=== PATIENT | female | born 1975 | race African-American/Black ===

== ENCOUNTER 2016-03-27 12:27 | Emergency (ER) | payer BC, OTHER ==
[2016-03-27 12:43] VITALS: BP 127/81; PULSE 69; TEMP 98.5; BMI 29.2
[2016-03-27] MEDS ORDERED: predniSONE 20 MG TABLET (UD) ONE (14:31)
[2016-03-27] MEDS ORDERED: ALBUTEROL SO4 2.5/IPRATROPIUM 0.5 INH SOL 3 ML VIAL.NEB. NEB ONE (14:31)
[2016-03-27] MEDS ORDERED: IBUPROFEN 400 MG TABLET (FP) PO ONE ×2 (14:31)
[2016-03-27] MEDS ORDERED: predniSONE 20 MG TABLET (UD) PO ONE (14:31)
--- NOTE | 2016-03-27 14:46 | PDOC ---
History of Present Illness - General Chief Complaint: Respiratory Stated Complaint: PCP SENT, COUGH, HEADACHES Time Seen by Provider: 03/27/16 14:28 History Source: Patient Exam Limitations: No Limitations - History of Present Illness Initial Comments: 03/27/16 15:21 Patient was sent per instruction of ward secretary Dr. Sharpe office for evaluation of continued/persistent cough 2 and half weeks. Patient states has tried multiple home remedies, multiple vyjd-mhs-rvejbgv medications with minimal result. States head is now hurting every time she coughs. Denies fever, denies phlegm production, but states has had no remedy Timing/Duration: reports: constant, getting worse Severity: reports: moderate, severe Past History - Travel Traveled outside of the country in the last 30 days: No Close contact w/someone who was outside of country & ill: No - Past Medical History Allergies/Adverse Reactions: Allergies Allergy/AdvReac Type Severity Reaction Status Date / Time No Known Drug Allergies Allergy Verified 03/27/16 12:40 Home Medications: Ambulatory Orders Multivitamin [Multivitamins] 1 each PO DAILY 02/14/12 Acetaminophen W/ Codeine #3 [Tylenol # 3 -] 2 tab PO Q6H PRN #30 tablet Albuterol 0.083% Nebulizer Rose [Ventolin 0.083% Nebulizer Soln -] 1 neb NEB Q4H PRN #30 vial 03/27/16 Azithromycin [Zithromax -] 250 mg PO UTDICT #6 tab 03/27/16 Prednisone [Deltasone -] 20 mg PO BID #8 tablet 03/27/16 Promethazine HCl/Codeine [Prometh-Codein 6.25-10 mg/5 ml] 5 ml PO Q8H PRN #50 syrup MDD 20 03/27/16 Anemia: Yes Asthma: No Cancer: No Cardiac Disorders: No CVA: No COPD: No CHF: No Dementia: No Diabetes: No GI Disorders: No Disorders: No HTN: No Hypercholesterolemia: No Liver Disease: Yes (cyst) Seizures: No Thyroid Disease: No - Surgical History Abdominal Surgery: No Appendectomy: No Cardiac Surgery: No Cholecystectomy: No Lung Surgery: No Neurologic Surgery: No Orthopedic Surgery: Yes (R EXTENSOR TENDON REPAIR) - Psycho/Social/Smoking Cessation Hx Suicidal Ideation: No Smoking History: Never smoked Have you smoked in the past 12 months: No Hx Alcohol Use: Yes (SOCIAL) Drug/Substance Use Hx: No Substance Use Type: None Hx Substance Use Treatment: No Review of Systems - Review of Systems Able to Perform ROS?: Yes Is the patient limited Bermudian proficient: Yes Constitutional: Yes: Symptoms Reported, Malaise Respiratory: Yes: Symptoms reported, See HPI, Cough, Shortness of Breath, Wheezing. No: Productive cough ABD/GI: No: Symptoms Reported Integumentary: Yes: Symptoms Reported Neurological: Yes: Symptoms reported, See HPI, Headache All Other Systems: Reviewed and Negative *Physical Exam - Vital Signs Last Vital Signs Temp Pulse Resp BP Pulse Ox 98.5 F 69 19 127/81 99 03/27/16 12:40 03/27/16 12:40 03/27/16 12:40 03/27/16 12:40 03/27/16 12:40 - Physical Exam General Appearance: Yes: Nourished, Appropriately Dressed, Apparent Distress, Moderate Distress HEENT: positive: SEBASTIAN, Normal ENT Inspection, TMs Normal, Pharynx Normal, Rhinorrhea, Sinus Tenderness Neck: positive: Tender, Supple, Lymphadenopathy (R), Lymphadenopathy (L) Respiratory/Chest: positive: Lungs Clear, Wheezing. negative: Normal Breath Sounds (diminished and coarse inspiratory and expiratory breath sounds, no wheezing noted but difficult to assess secondary to hyperactive cough), Rhonchi Cardiovascular: positive: Regular Rate Gastrointestinal/Abdominal: positive: Normal Bowel Sounds, Soft. negative: Tender Musculoskeletal: positive: Normal Inspection Extremity: positive: Normal Capillary Refill, Normal Inspection Integumentary: positive: Normal Color, Dry, Warm, Pale Neurologic: positive: laboratory engineer II-XII NML intact, Fully Oriented, Alert, Normal Mood/ Affect, Normal Response, Motor Strength 5/5 Progress Note - Progress Note Progress Note: Chest x-ray negative for infiltrate, patient much improved after one DuoNeb, and 60 mg of prednisone. Also given 60 mg of ibuprofen with some resolve of generalized and headache. Will continue albuterol nebulizers and prednisone at home for hyperactive airway, will start Zithromax to treat possible bacterial bronchitis, and prescribed 50 mL of promethazine with codeine for severe cough. Will follow-up with PMD this week *DC/Admit/Observation/Transfer Diagnosis at time of Disposition: Bronchitis - Discharge Dispostion Disposition: HOME Condition at time of disposition: Stable Admit: No - Prescriptions Prescriptions: Prednisone [Deltasone -] 20 mg PO BID #8 tablet Promethazine HCl/Codeine [Prometh-Codein 6.25-10 mg/5 ml] 5 ml PO Q8H PRN #50 syrup MDD 20 PRN Reason: Cough Albuterol 0.083% Nebulizer Rose [Ventolin 0.083% Nebulizer Soln -] 1 neb NEB Q4H PRN #30 vial PRN Reason: Cough Azithromycin [Zithromax -] 250 mg PO UTDICT #6 tab - Referrals Referrals: Cuong Canela MD [Primary Care Provider] - - Patient Instructions Printed Discharge Instructions: DI for Acute Bronchitis Additional Instructions: Rest, drink lots of fluids: Teas, water, soups, Pedialyte Saltwater gargles Steamy showers/seem to face break up mucus Avoid contact with others until fevers and cough resolved Lots of handwashing and good hygiene Continue fhbd-[id number]-[id number] medications for symptomatic relief Tylenol or Motrin for fever and pain Continue albuterol nebulizers every 4-6 hours for the next 2 days then as needed for continued wheezing and cough Continue prednisone 40 mg for the next 4 days as directed Start Zithromax as directed and complete course May use promethazine with codeine for severe coughing understanding will make dizzy and sleepy Followup with private physician in one to 2 days Return to emergency department for worsened symptoms, fevers, dehydration - Post Discharge Activity Work/School Note: Back to Work
== END 2016-03-27 15:33 | disposition home or self-care (01) ==
LOC: JERFT 12:27
PROC: 3E0F7GC Introduction of Other Therapeutic Substance into Respiratory Tract, Via Natural or Artificial Opening (ICD-10-PCS; principal; 2016-03-27)
DX: J40 Bronchitis, not specified as acute or chronic (principal)
CPT/HCPCS: 71020-TC; 99281-25

== ENCOUNTER 2016-05-03 05:25 | Day surgery (SDC) | payer BC, OTHER ==
[2016-04-30 17:15] VITALS: BMI 30.7
[2016-05-03] MEDS ORDERED: SODIUM CHLORIDE 0.9% P/F 10 ML VIAL IJ ONE (07:21)
[2016-05-03] MEDS ORDERED: DEXAMETHASONE SOD PHOSPHATE 4 MG/1 ML VIAL ONE (07:21)
[2016-05-03] MEDS ORDERED: KETOROLAC TROMETHAMINE 30 MG/1 ML VIAL ONE (07:21)
[2016-05-03] MEDS ORDERED: ceFAZolin SODIUM 1 GM VIAL ONE (07:21)
[2016-05-03] MEDS ORDERED: MIDAZOLAM HCL 2 MG/2 ML SINGLE DOSE VIAL ONE (07:21)
[2016-05-03] MEDS ORDERED: SUCCINYLCHOLINE CHLORIDE 200 MG/10 ML VIAL ONE ×2 (07:21→07:29)
[2016-05-03] MEDS ORDERED: LIDOCAINE HCL 2% (20ML MULTI-DOSE VIAL) NR ONE (07:28)
[2016-05-03] MEDS ORDERED: DESFLURANE GAS 240 ML BOTTLE IH ONE (07:28)
[2016-05-03] MEDS ORDERED: ceFAZolin SODIUM 1 GM VIAL IVPB ONE (08:28)
[2016-05-03] MEDS ORDERED: ACETAMINOPHEN 325 MG TABLET (FP) PO PRN ×2 (09:28→09:54)
[2016-05-03] MEDS ORDERED: oxyCODONE HCL 5 MG TABLET PO PRN (09:28)
[2016-05-03] MEDS ORDERED: ONDANSETRON 4 MG/2 ML VIAL IVPUSH PRN (09:28)
[2016-05-03] MEDS ORDERED: LACTATED RINGERS SOLUTION 1,000 ML IV SCH (09:30)
[2016-05-03] MEDS ORDERED: IBUPROFEN 400 MG TABLET (FP) PO PRN (09:54)
--- NOTE | 2016-05-03 09:56 | HP ---
History & Physical Update - History History: No Change - Physical Physical: No Change - Assessment Assessment: No Change - Plan Plan: No Change
--- NOTE | 2016-05-03 09:57 | OP ---
[id number] polyp. menorrhagia Operation: Hysteroscopic Myomectomy. Suction DC Findings: Endometrial polyp seen Post-Operative Diagnosis: Same as Pre-op Surgeon: Alisia Guerrero Anesthesia: General Estimated Blood Loss (mls): 10 Operative Report Dictated: Yes
[2016-05-03 11:47] VITALS: TEMP 97.6
[2016-05-03 14:09] VITALS: BP 115/67; PULSE 87
--- NOTE | 2016-05-04 11:21 | PATH ---
Surgical Pathology Report Patient Name: ARASELI LOO [facility]. Rec. #: [id number] /Age/Gender: 1975 (Age: 40) / F Account: [id number] Location: [facility] SURG[facility] Taken: 05/03/2016 Received: 05/03/2016 Reported: 05/04/2016 Physicians: Alisia Guerrero M.D. Specimen(s) Received A: POLYPS B: ENDOMETRIAL CURETTINGS Clinical History Endometrial polyp/abnormal bleeding, myomas Final Diagnosis A. ENDOMETRIUM, CURETTING AND MYOMECTOMY: SECRETORY ENDOMETRIUM WITH AREAS SUGGESTIVE OF BENIGN ENDOMETRIAL POLYP, AND PORTION OF MYOMETRIAL TISSUE. CLOTTED BLOOD IS PRESENT. B. ENDOMETRIUM, CURETTING: SECRETORY ENDOMETRIUM, AND MYOMETRIAL TISSUE WITH ENTRAPPED ENDOMETRIUM CONSISTENT WITH ADENOMYOSIS. Electronically Signed James Hartman M.D. Gross Description A. Received in formalin labelled "polyps" is a 1.0 x 0.5 x 0.3 cm aggregate of clotted blood and griffin tissue fragments. Totally submitted in one cassette. B. Received in formalin labelled "endometrial curetting" is a 1.5 x 1.5 x 0.3 cm aggregate of griffin tissue fragments. Totally submitted in one cassette. [facility]/05/03/2016 [facility]/05/03/2016
--- NOTE | 2016-05-18 08:39 | OP ---
DATE OF OPERATION: 05/03/2016 PREOPERATIVE DIAGNOSIS: Endometrial polyps, abnormal bleeding, and leiomyomatous uterus. OPERATION: Hysteroscopic myomectomy and suction dilatation and curettage. POSTOPERATIVE DIAGNOSIS: Endometrial polyps, abnormal bleeding, and leiomyomatous uterus. SURGEON: Alisia Guerrero MD ANESTHESIA: General. PROCEDURE: Patient was taken to the operating room, placed in dorsal lithotomy position, prepped and draped in the usual sterile fashion. A time-out was performed in accordance with hospital regulations. A speculum was placed in the vagina, anterior lip of the cervix was grasped with a single-tooth tenaculum. Cervix was then dilated to accommodate the operative hysteroscope. Hysteroscopic myomectomy was performed. Contents were submitted, endometrial polyps seen. Endometrial cavity was then free of polyp, and suction dilatation and curettage was then done. After suction dilatation and curettage was done, hysteroscopy revealed normal endometrial cavity. All instruments were then removed. Patient tolerated the procedure well. Estimated blood loss was 10 mL. ALISIA GUERRERO M.D. GINA/[id number]
== END 2016-05-03 14:09 | disposition home or self-care (01) ==
LOC: JASU-SURG 05:25
PROVIDERS: ATTEND Obstetrics & Gynecology
PROC: 0UDB8ZX Extraction of Endometrium, Via Natural or Artificial Opening Endoscopic, Diagnostic (ICD-10-PCS; principal; 2016-05-03 07:30)
PROC: 0UB98ZZ Excision of Uterus, Via Natural or Artificial Opening Endoscopic (ICD-10-PCS; 2016-05-03 07:30)
DX: N84.0 Polyp of corpus uteri (principal); D25.9 Leiomyoma of uterus, unspecified; N93.9 Abnormal uterine and vaginal bleeding, unspecified
CPT/HCPCS: 88305-TC; 94760

== ENCOUNTER → 2016-07-08 | Emergency (ER) | payer BC, OTHER ==
[~2016-07-08] MED LIST: ACETAMINOPHEN 1000 MG/100 ML VIAL (NON FORMULARY) IVPB ONE; KETOROLAC TROMETHAMINE 30 MG/1 ML VIAL IVPUSH ONE; KETOROLAC TROMETHAMINE 30 MG/1 ML VIAL ONE
[2016-07-08 19:06] VITALS: BMI 31.1
[2016-07-08 21:12] LABS: BASOPHIL 0.7 % (0-2.0); EOSINOPHIL 1.3 % (0-4.5); MCH 29.2 pg (25.7-33.7); MCHC 33.3 g/dl (32.0-36.0); MEAN CELL VOLUME 87.8 fl (80-96); MEAN PLT VOLUME 9.4 fl (7.5-11.1); NEUTROPHILS 44.3 % (42.8-82.8); PLATELET COUNT 232 K/MM3 (134-434); RDW 13.5 % (11.6-15.6); WHITE BLOOD COUNT 8.5 K/mm3 (4.0-10.0)
[2016-07-08 21:30] LABS: URINE APPEARANCE SLCLOUDY; URINE BILIRUBIN NEGATIVE (NEGATIVE); URINE COLOR GREEN; URINE GLUCOSE (UA) NEGATIVE (NEGATIVE); URINE KETONE NEGATIVE (NEGATIVE); URINE LEUK ESTERASE NEGATIVE (NEGATIVE); URINE NITRITE NEGATIVE (NEGATIVE); URINE PROTEIN NEGATIVE (NEGATIVE); URINE UROBILINOGEN NEGATIVE E.U./dl (0.2-1.0)
[2016-07-08 21:31] LABS: URINE BLOOD 1+ (NEGATIVE)
[2016-07-08 21:37] LABS: ALBUMIN 3.7 g/dl (3.4-5.0); ANION GAP 10 (8-16); CO2 25 mmol/L (21-32); CREATININE 0.9 mg/dL (0.55-1.02); GLUCOSE,RANDOM 92 mg/dL (74-106); SGOT/AST 21 U/L (15-37); SGPT/ALT 23 U/L (12-78)
[2016-07-08 21:39] LABS: ALK PHOS 76 U/L (45-117); BILIRUBIN,TOTAL 0.3 mg/dL (0.2-1.0); TOT PROT 6.8 g/dl (6.4-8.2)
[2016-07-08 21:49] LABS: URINE RBC 1 /hpf (0-3)
--- NOTE | 2016-07-08 23:09 | PDOC ---
History of Present Illness - General Chief Complaint: Pain Stated Complaint: PELVIC PAIN Time Seen by Provider: 07/08/16 19:32 History Source: Patient Exam Limitations: No Limitations - History of Present Illness Initial Comments: 07/08/16 22:49 Patient is a 40 year old female with h/o C/S, abdominoplasty, b/l elbow tendon repair, c/o Left sided pelvic pain since today. States that she chronic pelvic pain x 1 year for which her OBS/LINE SERVICER has been treating her for. States the pain is intermittent but since 10AM the pain has been constant, 8.5/10, crampy pain. She took Motrin at 4:30pm without any relief of pain. She has has a D&C for this pain in the past and a polypectomy without relief. Three weeks ago the LINE SERVICER thought this pain may be related to her control implanted in the fallopian tube. Denies fever, chills, vaginal bleeding, nausea , vomiting, dysuria. PMD: dr. Tam LINE SERVICER: Dr. Blackmon PMD: as above PSOCHx: neg etoh, drug, cig Pfamhx: noncontributory to this visit ALL: NKDA GENERAL/CONSTITUTIONAL: [No fever or chills. No weakness. No weight change.] HEAD, EYES, EARS, NOSE AND THROAT: [No change in vision. No ear pain or discharge. No sore throat.] CARDIOVASCULAR: [No chest pain or shortness of breath.] RESPIRATORY: [No cough, wheezing, or hemoptysis.] GASTROINTESTINAL: [No nausea, vomiting, diarrhea or constipation. No rectal bleeding.] GENITOURINARY: [No dysuria, frequency, or change in urination, (+) chronic pelvic pain] MUSCULOSKELETAL: [No joint or muscle swelling or pain. No neck or back pain.] SKIN AND BREASTS: [No rash or easy bruising.] NEUROLOGIC: [No headache, vertigo, loss of consciousness, or loss of sensation.] PSYCHIATRIC: [No depression or anxiety.] ENDOCRINE: [No increased thirst. No abnormal weight change.] HEMATOLOGIC/LYMPHATIC: [No anemia, easy bleeding, or history of blood clots.] ALLERGIC/IMMUNOLOGIC: [No hives or skin allergy. No latex allergy.] GENERAL: [The patient is awake, alert, and fully oriented, in mild painful distress.] HEAD: [Normal with no signs of trauma.] EYES: [Pupils equal, round and reactive to light, extraocular movements intact, sclera anicteric, conjunctiva clear.] ENT: [Ears normal, nares patent, oropharynx clear without exudates. Moist mucous membranes.] NECK: [Normal range of motion, supple without lymphadenopathy, JVD, or masses.] LUNGS: [Breath sounds equal, clear to auscultation bilaterally. No wheezes, and no crackles.] HEART: [Regular rate and rhythm, normal S1 and S2 without murmur, rub.] ABDOMEN: [Soft, nontender, normoactive bowel sounds. No guarding, no rebound. No masses.] PELVIC: normal external genitalia, small amount of creamy discharge, left adnexal tenderness, mild CMT EXTREMITIES: [Normal range of motion, no edema. No clubbing or cyanosis. No cords, erythema, or tenderness.] NEUROLOGICAL: [Cranial nerves II through XII grossly intact. Normal speech, normal gait.] PSYCH: [Normal mood, normal affect.] SKIN: [Warm, Dry, normal turgor, no rashes or lesions noted.] Past History - Past Medical History Allergies/Adverse Reactions: Allergies Allergy/AdvReac Type Severity Reaction Status Date / Time No Known Drug Allergies Allergy Verified 07/08/16 19:06 Home Medications: Ambulatory Orders Multivitamins [Tab-A-Vit -] 1 tab PO DAILY 04/30/16 Ibuprofen [Motrin -] 600 mg PO QID PRN #28 tablet 05/03/16 L.acidoph,Paracasei, B.lactis [Probiotic] 1 each PO DAILY 05/03/16 Anemia: Yes Asthma: No Cancer: No Cardiac Disorders: No CVA: No COPD: No CHF: No Dementia: No Diabetes: No GI Disorders: No Disorders: No HTN: No Hypercholesterolemia: No Liver Disease: Yes (cyst) Seizures: No Thyroid Disease: No - Surgical History Abdominal Surgery: No Appendectomy: No Cardiac Surgery: No Cholecystectomy: No Lung Surgery: No Neurologic Surgery: No Orthopedic Surgery: Yes (R & L EXTENSOR TENDON REPAIR) - Psycho/Social/Smoking Cessation Hx Anxiety: No Suicidal Ideation: No Smoking History: Never smoked Have you smoked in the past 12 months: No Hx Alcohol Use: No Drug/Substance Use Hx: No Substance Use Type: None Hx Substance Use Treatment: No *Physical Exam - Vital Signs Last Vital Signs Temp Pulse Resp BP Pulse Ox 98.6 F 56 L 20 137/97 99 07/08/16 19:03 07/08/16 19:03 07/08/16 19:03 07/08/16 19:03 07/08/16 19:03 ED Treatment Course - LABORATORY CBC & Chemistry Diagram: 07/08/16 21:04 07/08/16 21:04 - ADDITIONAL ORDERS Additional order review: Laboratory Results 07/08/16 07/08/16 07/08/16 21:23 21:04 21:04 Sodium 139 Potassium 4.1 Chloride 104 Carbon Dioxide 25 Anion Gap 10 BUN 11 Creatinine 0.9 D Creat Clearance w eGFR > 60 Random Glucose 92 D Calcium 9.0 Total Bilirubin 0.3 D AST 21 D ALT 23 Alkaline Phosphatase 76 Total Protein 6.8 Albumin 3.7 Lipase 143 Urine Color Green Urine Appearance Slcloudy Urine pH 6.0 Urine Protein Negative Urine Glucose (UA) Negative Urine Ketones Negative Urine Blood 1+ H Urine Nitrite Negative Urine Bilirubin Negative Urine Urobilinogen Negative Ur Leukocyte Esterase Negative Urine RBC 1 Urine WBC None Ur Epithelial Cells Rare Urine HCG, Qual Negative 07/08/16 21:04 RBC 4.36 MCV 87.8 MCHC 33.3 RDW 13.5 MPV 9.4 Neutrophils % 44.3 Lymphocytes % 45.6 H Monocytes % 8.1 Eosinophils % 1.3 Basophils % 0.7 - RADIOLOGY Radiology Studies Ordered: Category Date Time Status PELVIC / BLADDER US [US] Stat Ultrasound 07/08/16 20:54 Taken TRANSVAGINAL ULTRASOUND US [US] Stat Ultrasound 07/08/16 20:54 Taken - Medications Given in the ED: ED Medications Discontinued Medications Generic Name Dose Route Start Last Admin Trade Name Freq PRN Reason Stop Dose Admin Acetaminophen 1,000 mg 07/08/16 20:54 07/08/16 21:17 Ofirmev Injection - IVPB 07/08/16 20:55 1,000 mg ONCE ONE Administration Medical Decision Making - Medical Decision Making 07/08/16 23:09 Patient is a 40-year-old female with history of , abdominoplasty, complaining of left pelvic pain since this morning. Patient does have a history of chronic pelvic pain for which she has been working with her WAREHOUSE ATTENDANT to resolve. Will rule out torsion with ultrasound. If ultrasound negative will send for CT abdomen and pelvis with IV contrast. Laboratory Tests 07/08/16 07/08/16 21:04 21:04 WBC 8.5 Hgb 12.7 Hct 38.3 Plt Count 232 Sodium 139 Potassium 4.1 Chloride 104 Carbon Dioxide 25 Anion Gap 10 BUN 11 Creatinine 0.9 D normal UA, preg test neg. Negative 07/08/16 23:15 Patient Name: Leona De La Torre THIS IS A PRELIMINARY REPORT FROM IMAGING RECEIVABLE CLERK IMAGES: 41 EXAM DATE AND TIME: 2016-07-08 21:35:55.0 EXAM: ULTRASOUND PELVIS, COMPLETE AND TRANSVAGINAL ULTRASOUND AND DUPLEX SCAN PELVIS, COMPLETE No ovarian torsion. Color flow with appropriate arterial and venous waveforms on the left and arterial waveforms on the right. No free fluid. Heterogeneous uterus containing scattered calcifications. Endometrial stripe complex 3 mm thick. Unremarkable visualized portion of bladder. THIS DOCUMENT HAS BEEN ELECTRONICALLY SIGNED Lakesha Jo M.D. 07/08/2016 22:54 FRANCIS Mckeon Please call Imaging Reception Clerk [phone]) with questions. Right 07/09/16 01:36 Patient Name: Leona De La Torre THIS IS A PRELIMINARY REPORT FROM IMAGING RECEIVABLE CLERK IMAGES: 493 EXAM DATE AND TIME: 2016-07-09 00:22:40.0 EXAM: CT ABDOMEN AND PELVIS WITH CONTRAST No bowel obstruction, colitis, diverticulosis, free fluid or free air. Normal diametera appendix containing an incidental 3 mm appendicolith. Unremarkable pancreas, kidneys and gallbladder. Multiple hepatic cysts, largest 4.2 cm, slightly enlarged since 04/22/14. Bilateral tubal ligation devices. Ventral hernia repair. Trace right pleural fluid. THIS DOCUMENT HAS BEEN ELECTRONICALLY SIGNED Lakesha Jo M.D. 07/09/2016 01:08 FRANCIS Mckeon Please call Imaging Reception Clerk [phone]) with questions. I discussed the physical exam findings, ancillary test results and final diagnoses with the patient. I answered all of the patient's questions. The patient was satisfied with the care received and felt comfortable with the discharge plan and treatment plan. The Patient agrees to follow up with the primary care physician within 24-72 hours. *DC/Admit/Observation/Transfer Diagnosis at time of Disposition: Abdominal pain, left lower quadrant - Discharge Dispostion Disposition: HOME Condition at time of disposition: Stable - Referrals Referrals: Cuong Canela MD [Primary Care Provider] - - Patient Instructions Printed Discharge Instructions: DI for Abdominal Pain-Adult Additional Instructions: Your Discharge Instructions: You must call primary care physician within 24 hours to arrange follow-up. Return to the Emergency Department with any new, persistent or worsening symptoms, for fever, chills, SOB, dizziness or any other concerning changes that may occur.
[2016-07-09 02:03] VITALS: BP 115/73; PULSE 68; TEMP 98.5
== END | disposition home or self-care (01) ==
LOC: JER 18:41
PROC: 3E033NZ Introduction of Analgesics, Hypnotics, Sedatives into Peripheral Vein, Percutaneous Approach (ICD-10-PCS; principal; 2016-07-08)
PROC: 3E0333Z Introduction of Anti-inflammatory into Peripheral Vein, Percutaneous Approach (ICD-10-PCS; 2016-07-08)
DX: R10.32 Left lower quadrant pain (principal)
CPT/HCPCS: 36415; 74177-TC; 76830-TC; 76856-TC; 80053; 81003; 81015; 83690; 84703; 85025; 99283-25

== ENCOUNTER 2016-08-16 08:33 | Day surgery (SDC) | payer BC, OTHER ==
[2016-08-13 16:08] VITALS: BMI 31.2
[~2016-08-16 08:33] MED LIST changes: -ACETAMINOPHEN 1000 MG/100 ML VIAL (NON FORMULARY) IVPB ONE; +BUPIVACAINE HCL/PF 0.5% (5MG/ML) 10 ML VIAL IJ ONE; -KETOROLAC TROMETHAMINE 30 MG/1 ML VIAL IVPUSH ONE; -KETOROLAC TROMETHAMINE 30 MG/1 ML VIAL ONE
[2016-08-16] MEDS ORDERED: BUPIVACAINE HCL/PF 0.5% (5MG/ML) 10 ML VIAL ONE (08:56)
[2016-08-16] MEDS ORDERED: PROPOFOL 20 ML ONE ×3 (09:10→09:23)
[2016-08-16] MEDS ORDERED: MIDAZOLAM HCL 2 MG/2 ML SINGLE DOSE VIAL ONE (09:11)
[2016-08-16] MEDS ORDERED: ROCURONIUM BROMIDE 50 MG/5 ML VIAL ONE (09:11)
[2016-08-16] MEDS ORDERED: DEXAMETHASONE SOD PHOSPHATE 4 MG/1 ML VIAL ONE (09:37)
--- NOTE | 2016-08-16 09:38 | HP ---
History & Physical Update - History History: No Change - Physical Physical: No Change - Assessment Assessment: No Change - Plan Plan: No Change
[2016-08-16] MEDS ORDERED: DESFLURANE GAS 240 ML BOTTLE IH ONE (09:43)
[2016-08-16] MEDS ORDERED: ceFAZolin SODIUM 1 GM VIAL ONE (09:52)
[2016-08-16] MEDS ORDERED: ceFAZolin SODIUM 1 GM VIAL IVPB ONE (09:52)
[2016-08-16] MEDS ORDERED: oxyCODONE HCL 5 MG TABLET PO PRN (10:04)
[2016-08-16] MEDS ORDERED: ONDANSETRON 4 MG/2 ML VIAL IVPUSH PRN (10:04)
[2016-08-16] MEDS ORDERED: IBUPROFEN 800 MG/8 ML IJ IVPB PRN (10:04)
[2016-08-16] MEDS ORDERED: PROMETHAZINE HCL 25 MG/1 ML VIAL IVPUSH PRN (10:04)
[2016-08-16] MEDS ORDERED: ACETAMINOPHEN 1000 MG/100 ML VIAL (NON FORMULARY) IVPB PRN (10:06)
[2016-08-16] MEDS ORDERED: LACTATED RINGERS SOLUTION 1,000 ML IV SCH (10:15)
[2016-08-16] MEDS ORDERED: GLYCOPYRROLATE 0.2 MG/1 ML VIAL ONE (10:31)
[2016-08-16] MEDS ORDERED: NEOSTIGMINE METHYLSULFATE 0.5 MG/ML - 10 ML MDV ONE (10:31)
--- NOTE | 2016-08-16 12:02 | OP ---
Operative Note - Note: Operative Date: 08/16/16 Pre-Operative Diagnosis: Chronic pelvic pain. Salpingitis. ovarian cyst Operation: Laparoscopic removal of bilateral essure. Bilateral salpingectomy. right ovarian cystectomy Findings: 3 cm right cyst Surgeon: Alisia Guerrero Senior Strategy Analyst: Clare Almodovar Anesthesia: General Estimated Blood Loss (mls): 30 Operative Report Dictated: Yes
--- NOTE | 2016-08-16 13:22 | OP ---
DATE OF OPERATION: 08/16/2016 PREOPERATIVE DIAGNOSIS: Chronic pelvic pain and chronic salpingitis and ovarian cyst. POSTOPERATIVE DIAGNOSIS: Chronic pelvic pain and chronic salpingitis and ovarian cyst. OPERATION: Robotic laparoscopic bilateral salpingectomy and bilateral removal of Essure device, foreign body, and right ovarian cystectomy. SURGEON: Janeth Guerrero MD CERTIFIED EXECUTIVE CHEF: Clare Almodovar DO ANESTHESIA: General. PROCEDURE: The patient was taken to the operating room and placed in the dorsal lithotomy position, prepped and draped in the usual sterile fashion. A timeout was performed in accordance with hospital regulations. A Oquendo catheter was inserted into the bladder. Attention was then drawn to the umbilicus where an 5-mm upper abdomen incision was made. Veress needle was inserted into the cavity. A 5-mm trocar was then inserted. Visualization revealed the patient's umbilical mesh. An incision was made above the mesh two fingerbreadths above the umbilicus and the 8-mm incision was then made and the trocar was inserted under direct visualization. Two other trocars were made on the left and right side under direct visualization. The Enigmatec Luis Robot was then side docked to the patient's bedside and trocar was then inserted. Instruments were then inserted. Maryland was inserted on the right and Endoshears was inserted on the left. After sufficient placement had been made, attention was then drawn to the console where control of the console was done. Endoshears was then used to make an incision in the isthmic area of the fallopian tube. The Essure device was noted on the right side and a large amount of wire was then removed from the endometrial cavity and the rest of the isthmic area of the tube. Cauterization of the tube was done in cutting and fallopian tube was removed and Essure device removal was then done. Same procedure was repeated on the other side where the incision on the fallopian tube was made and Essure device was located and Da Luis was then used to remove the wire from the endometrial cavity as well as the isthmic area. Fallopian tube was grasped and coagulated and cut and both fallopian tubes and wires were then removed. Attention was then drawn to the right ovary where a 3-cm ovarian cyst was noted. An ovarian cystectomy was then performed using the Maryland and the Endoshears and coagulation and cutting and removal of the tube was done. Hemostasis was achieved. All tubes and all had been removed. Trocars were undocked from the patient's bedside. All instruments were then removed. CO2 was removed from the abdomen. The incisions were then closed using 4-0 Biosyn suture in a subcuticular fashion. Wounds were washed and dressed. The patient tolerated the procedure well. Estimated blood loss 20 mL. JANETH GUERRERO M.D. [id number]
[2016-08-16] MEDS ORDERED: oxyCODONE HCL 5 MG TABLET ONE (13:39)
[2016-08-16 17:49] VITALS: BP 116/72; PULSE 86; TEMP 98
--- NOTE | 2016-08-17 13:35 | PATH ---
Surgical Pathology Report Patient Name: ARASELI LOO [facility]. Rec. #: [id number] /Age/Gender: 1975 (Age: 40) / F Account: [id number] Location: [facility] SURGICAL Taken: 08/16/2016 Received: 08/16/2016 Reported: 08/17/2016 Physicians: Alisia Guerrero M.D. Specimen(s) Received A: RIGHT ESSURE B: RIGHT FALLOPIAN TUBE C: LEFT ESSURE D: LEFT FALLOPIAN TUBE E: RIGHT OVARIAN CYST Clinical History Chronic pelvic pain Final Diagnosis A. SLIDE ATTENDANT, RIGHT FALLOPIAN TUBE, REMOVAL: COILED METALLIC WIRE CONSISTENT WITH ESSURE. (GROSS ONLY). B. RIGHT FALLOPIAN TUBE, SALPINGECTOMY: FULL LUMINAL SEGMENT OF FALLOPIAN TUBE INCLUDING FIMBRIATED END, WITH BENIGN SEROUS PARATUBAL CYSTS. C. SLIDE ATTENDANT, LEFT FALLOPIAN TUBE, REMOVAL: COILED METALLIC WIRE CONSISTENT WITH ESSURE. (GROSS ONLY). D. LEFT FALLOPIAN TUBE, SALPINGECTOMY: FULL LUMINAL SEGMENT OF FALLOPIAN TUBE INCLUDING FIMBRIATED END. E. RIGHT OVARIAN CYST, EXCISION: HEMORRHAGIC LUTEAL CYST. Electronically Signed James Hartman M.D. Gross Description A. Received fresh labeled "right essure," are 2 lind metallic portions of coiled, springlike wire measuring 0.5 and 2.0 cm in length. No soft tissue is present. No sections are submitted, gross only. B. Received in formalin labeled "right fallopian tube," is a 6 cm in length fimbriated fallopian tube. The outer surface is lind purple and smooth. Sectioning reveals an unremarkable lumen. Regulatory Affairs Internship sections are submitted in one cassette. C. Received fresh labeled "left essure," are 2 coiled portions of springlike wire measuring 0.6 and 17.0 cm in length. No soft tissue is present. No sections are submitted, gross only. D. Received in formalin labeled "left fallopian tube," are 2 portions of fallopian tube measuring 4.5 and 3.0 cm in length. The shorter portion displays attached fimbria. The outer surfaces are griffin-pink and smooth. Sectioning reveals an unremarkable lumen. Regulatory Affairs Internship sections are submitted in 2 cassettes as follows: 1-fimbria; 2-cross sections of fallopian tube. E. Received in formalin labeled "right ovarian cyst," is a 1.6 x 1.3 x 0.3 cm aggregate of griffin-brown soft tissue fragments, possibly consistent with portions of a disrupted cyst. The specimen is entirely submitted in one cassette. 08/16/201608/16/2016
== END 2016-08-16 15:30 | disposition home or self-care (01) ==
LOC: JASU-SURG 08:33
PROVIDERS: ATTEND Obstetrics & Gynecology
PROC: 0UB74ZZ Excision of Bilateral Fallopian Tubes, Percutaneous Endoscopic Approach (ICD-10-PCS; principal; 2016-08-16 09:00)
PROC: 0UB04ZZ Excision of Right Ovary, Percutaneous Endoscopic Approach (ICD-10-PCS; 2016-08-16 09:00)
DX: N70.91 Salpingitis, unspecified (principal); N83.201 Unspecified ovarian cyst, right side; G89.29 Other chronic pain
CPT/HCPCS: 88300-TC; 88302-TC; 88305-TC; 94760

== ENCOUNTER 2017-07-18 05:05 | Day surgery (SDC) | payer BC, OTHER ==
[2017-07-10 13:27] VITALS: BMI 24.7
--- NOTE | 2017-07-18 05:56 | HP ---
History & Physical Update - History History: No Change - Physical Physical: No Change - Assessment Assessment: No Change - Plan Plan: No Change (no change in HP from 07/10/17)
[2017-07-18] MEDS ORDERED: BUPIVACAINE HCL/PF 0.5% (5MG/ML) 10 ML VIAL ONE (07:26)
[2017-07-18] MEDS ORDERED: ROPIVACAINE HCL 0.5% 30ML VIAL ONE (07:30)
[2017-07-18] MEDS ORDERED: MIDAZOLAM HCL 2 MG/2 ML SINGLE DOSE VIAL ONE ×2 (07:32)
[2017-07-18] MEDS ORDERED: SCOPOLAMINE HYDROBROMIDE 1 PATCH PATCH.TD72 ONE (07:40)
[2017-07-18] MEDS ORDERED: ceFAZolin SODIUM 1 GM VIAL ONE ×3 (07:42→16:41)
[2017-07-18] MEDS ORDERED: PHENAZOPYRIDINE HCL 100 MG TABLET (FP) PO ONE (07:50)
[2017-07-18] MEDS ORDERED: LIDOCAINE HCL/PF 2% SDV 5ML VIAL ONE (08:18)
[2017-07-18] MEDS ORDERED: ROCURONIUM BROMIDE 50 MG/5 ML VIAL ONE (08:18)
[2017-07-18] MEDS ORDERED: PROPOFOL 20 ML ONE ×2 (08:18→08:19)
[2017-07-18] MEDS ORDERED: SODIUM CHLORIDE 0.9% P/F 10 ML VIAL IJ ONE (08:31)
[2017-07-18] MEDS ORDERED: DEXAMETHASONE SOD PHOSPHATE 4 MG/1 ML VIAL ONE (08:35)
[2017-07-18] MEDS: ceFAZolin SODIUM 1 GM VIAL IVPB ONE ×2 (08:35→16:30)
[2017-07-18] MEDS ORDERED: DESFLURANE GAS 240 ML BOTTLE IH ONE (09:09)
[2017-07-18] MEDS ORDERED: GLYCOPYRROLATE 0.2 MG/1 ML VIAL ONE (10:11)
[2017-07-18] MEDS ORDERED: NEOSTIGMINE METHYLSULFATE 0.5 MG/ML - 10 ML MDV ONE (10:11)
[2017-07-18] MEDS ORDERED: BUPIVACAINE HCL/PF 0.5% (5MG/ML) 10 ML VIAL IJ ONE (10:22)
[2017-07-18] MEDS ORDERED: PHENAZOPYRIDINE HCL 100 MG TABLET (FP) PO STA (10:25)
[2017-07-18] MEDS ORDERED: LACTATED RINGERS SOLUTION 1,000 ML IV SCH (10:30)
[2017-07-18] MEDS ORDERED: ONDANSETRON 4 MG/2 ML VIAL IVPUSH PRN (10:50)
[2017-07-18] MEDS ORDERED: PROMETHAZINE HCL 25 MG/1 ML VIAL IVPUSH PRN (10:50)
[2017-07-18] MEDS ORDERED: MEPERIDINE HCL CARPU-JECT 25 MG/1 ML DISP.SYRIN IVPUSH ONE (10:51)
[2017-07-18] MEDS ORDERED: ACETAMINOPHEN 1000 MG/100 ML VIAL (NON FORMULARY) IVPB ONE (10:51)
[2017-07-18] MEDS ORDERED: ACETAMINOPHEN 325 MG TABLET (FP) PO PRN (10:57)
--- NOTE | 2017-07-18 11:00 | OP ---
DATE OF OPERATION: 07/18/2017 PREOPERATIVE DIAGNOSES: Leiomyomatous uterus, pelvic pain, menorrhagia and endometrial polyp. OPERATION: Laparoscopic total robotic hysterectomy. SURGEON: Alisia Guerrero MD DEICER ELEMENT WINDER MACHINE: LINDSEY Morris ANESTHESIA: General. ANESTHESIOLOGIST: Trip Chahal MD FINDINGS: Uterus approximately 10 to 12 cm in size. PROCEDURE: Patient was taken to the operating room, placed in dorsal lithotomy position, prepped and draped in the usual sterile fashion. A timeout was performed in accordance with hospital regulation. Speculum was placed in the vagina. Anterior lip of the cervix grasped with a single-tooth tenaculum. Cervix was then dilated to accommodate the VCare uterine manipulator. Attention was then drawn to the abdomen where an 8-mm umbilical incision was made. Veress needle was inserted into the cavity. Approximately 3 to 4 L of CO2 was insufflated in the cavity. Veress needle was then removed and an 8-mm trocar was inserted. Laparoscope and camera were attached. Visualization revealed leiomyomatous uterus. Attention was then drawn to the incisions that were made, 2 on the left side and 2 on the right side. Under direct visualization the 8-mm trocars were then placed 10 mm apart. AirSeal cannula was placed in the upper abdomen under direct visualization and two 8-mm on the right were placed parallel to the umbilical incision. Da Lius robot was then side docked to the patient's bedside. Trocars were then inserted. Instruments were then inserted under direct visualization. The vessel seal was inserted on the left. The Endoshears and tenaculum were inserted on the right. After instruments were placed control of the Da Luis robot was then done at the console. Tenaculum was then used to elevate the uterus and to the right side. The utero-ovarian ligament was identified and clamped and cut. Round ligament was identified and clamped and cut on the left and uterine arteries were clamped and cut. Vesicouterine reflection was then entered and bladder was bluntly dissected out of the operative field. The Endoshears was then used to cut the vagina anteriorly and cut the cervix away from the vagina. The VCare device was seen. Attention was then drawn to the right side where utero-ovarian ligament was identified and clamped and cut. Uterine artery was identified and clamped and cut. Round ligament was identified and clamped and cut and bladder was bluntly dissected out of the operative field. The Endoshears was then used to cut the vagina away from the cervix circumferentially around. Ureters were identified and found to be peristaltic. After the uterus was cut away from the vagina the uterus and the cervix were then removed from the vagina and 2-0 V-Loc suture was then used to close the vaginal cuff. Hemostasis was achieved. Ureters were identified and found to be peristaltic. CO2 was then removed. Instruments were all removed. Needle was removed. Incisions were then closed using 4-0 Biosyn suture in a subcuticular fashion. Wound was washed and dressed. Patient tolerated procedure well. Estimated blood loss 50 mL. Linda [id number]
--- NOTE | 2017-07-18 11:04 | OP ---
Operative Note - Note: Operative Date: 07/18/17 Pre-Operative Diagnosis: endrometrial polyps, abdominal pain, Dysmenorrhea, Leiomyoma of uterus Operation: Robotic assisted lararoscopic total hysterectomy Post-Operative Diagnosis: Same as Pre-op Surgeon: Alisia Guerrero Signal Mechanic: María Nunez Anesthesiologist/CORN HUSKER: Trip Chahal (\) Anesthesia: General, Local (with block) Specimens Removed: Uterus and cervix Estimated Blood Loss (mls): 50 Drains, Volume Out (mls): 400 (roblero) Fluid Volume Replaced (mls): 1,000 Operative Report Dictated: Yes
--- NOTE | 2017-07-18 11:05 | SURG ---
Surgery Green Chain Operator Note Green Chain Operator: María Nunez PA-C Date of Service: 07/18/17 Diagnosis: endrometrial polyps, abdominal pain, Dysmenorrhea, Leiomyoma of uterus Procedure: robotic assisted laparoscopic total hysterectomy I was present for the entirety of the operative procedure. For further detail, please refer to operative report. Visit type - Case Type Case Type: Scheduled - New patient This patient is new to me today: Yes Date on this admission: 07/18/17
[2017-07-18] MEDS ORDERED: ACETAMINOPHEN INJECTION 100 ML IVPB ONE (11:31)
[2017-07-18] MEDS ORDERED: SIMETHICONE 80 MG TAB.CHEW (FP) PO PRN (16:06)
[2017-07-18 16:15] LABS: BASO % 0.1 % (0-2.0); HEMATOCRIT 35.9 % (32.4-45.2); LYMPH % 9.5 % (8-40); MCH 29.4 pg (25.7-33.7); MCHC 33.4 g/dl (32.0-36.0); MEAN CELL VOLUME 87.9 fl (80-96); MEAN PLT VOLUME 9.6 fl (7.5-11.1); MONO % 4.1 % (3.8-10.2); NEUT % 86.3 % (42.8-82.8); PLATELET COUNT 206 K/MM3 (134-434); RBC 4.08 M/mm3 (3.60-5.2); RDW 13.7 % (11.6-15.6); WHITE BLOOD COUNT 9.3 K/mm3 (4.0-10.0)
[2017-07-18 16:36] LABS: ALBUMIN 3.8 g/dl (3.4-5.0); ALK PHOS 74 U/L (45-117); ANION GAP 6 (8-16); BILIRUBIN,TOTAL 0.6 mg/dL (0.2-1.0); BLOOD UREA NITROGEN 7 mg/dL (7-18); CHLORIDE 105 mmol/L (98-107); CO2 27 mmol/L (21-32); CREATININE 0.7 mg/dL (0.55-1.02); GLUCOSE,RANDOM 97 mg/dL (74-106); POTASSIUM 4.4 mmol/L (3.5-5.1); SGOT/AST 11 U/L (15-37); SGPT/ALT 18 U/L (12-78); SODIUM 138 mmol/L (136-145); TOT PROT 6.8 g/dl (6.4-8.2)
[2017-07-18] MEDS: LACTATED RINGERS SOLUTION 1,000 ML IV SCH (17:32)
[2017-07-18] MEDS: oxyCODONE HCL 5 MG TABLET PO PRN (20:47)
[2017-07-19] MEDS: CEFAZOLIN 2 GM/D5W 2 GM/50 ML ML IVPB SCH (00:10)
[2017-07-19] MEDS: oxyCODONE HCL 5 MG TABLET PO PRN ×2 (04:02→10:26)
[2017-07-19] MEDS: LACTATED RINGERS SOLUTION 1,000 ML IV SCH ×2 (04:40→12:23)
[2017-07-19 07:28] LABS: HEMATOCRIT 32.6 % (32.4-45.2); HEMOGLOBIN 11.1 GM/dL (10.7-15.3); MCH 30.2 pg (25.7-33.7); MCHC 34.2 g/dl (32.0-36.0); MEAN CELL VOLUME 88.3 fl (80-96); MEAN PLT VOLUME 9.6 fl (7.5-11.1); PLATELET COUNT 174 K/MM3 (134-434); RBC 3.69 M/mm3 (3.60-5.2); RDW 13.6 % (11.6-15.6); WHITE BLOOD COUNT 6.6 K/mm3 (4.0-10.0)
--- NOTE | 2017-07-19 08:26 | PN ---
Progress Note (short form) - Note Progress Note: Post op day#1.S/P Robotic,laproscopic hysterectomy under GA with TAP block uneventful.Patient stable and c/o some pain for which she is on medication.No any anesthesia related problem.Patient DC from the anesthesia care.
[2017-07-19 08:37] LABS: ALBUMIN 3.2 g/dl (3.4-5.0); ANION GAP 5 (8-16); BILIRUBIN,TOTAL 0.9 mg/dL (0.2-1.0); BLOOD UREA NITROGEN 6 mg/dL (7-18); CALCIUM 8.4 mg/dL (8.5-10.1); CHLORIDE 105 mmol/L (98-107); CO2 29 mmol/L (21-32); CREATININE 0.7 mg/dL (0.55-1.02); GLUCOSE,RANDOM 79 mg/dL (74-106); POTASSIUM 4.1 mmol/L (3.5-5.1); SGOT/AST 12 U/L (15-37); SODIUM 139 mmol/L (136-145)
--- NOTE | 2017-07-19 08:44 | PN ---
Progress Note (short form) - Note Progress Note: Surgery POD #1 robotic assisted total hysterectomy. Patient seen and examined at bedside states pain is controlled. Patient states she is tolerating a clear diet and her roblero was removed this morning. She denies any CP, SOB, N/V/D, fever or chills. Vital Signs Temp 98.5 F 07/19/17 07:00 Pulse 55 L 07/19/17 07:00 Resp 20 07/19/17 07:00 BP 97/61 07/19/17 07:00 Pulse Ox 100 07/18/17 19:40 Intake & Output 07/18/17 07/18/17 07/19/17 11:59 23:59 11:59 Intake Total 2000 1450 Output Total 550 3300 600 Balance 1450 -1850 -600 Intake: IV 2000 1450 Lactated Ringers Solution 1250 1,000 ml @ 125 mls/hr IV ASDIR CORINE Rx#: [id number] Output: Urine 500 3300 600 Roblero 200 600 Estimated Blood Loss 50 CBC, BMP 07/19/17 06:26 PE: A&Ox3, NAD unlabored resp on RA Abdomen: soft, non-distended, diffusely tender to palpation-appropriate to status, incisions C/D/I with steris and bandaids, no discharge or tracking erythema. LE compartments soft, supple and non-tender, sensation to light touch intact throughout with +2 pedal pulses b/l Problem List - Problems (1) Status post hysterectomy Assessment/Plan: 1) OOB as tolerated 2) Advance diet once passing flatus 3) pain control 4) DVT prophylaxis 5) d/c planning for home pending labs and diet advancement. Evaluation and plan discussed with Dr Guerrero Code(s): Z90.710 - ACQUIRED ABSENCE OF BOTH CERVIX AND UTERUS
[2017-07-19 08:54] LABS: ALK PHOS 65 U/L (45-117); SGPT/ALT 13 U/L (12-78); TOT PROT 5.8 g/dl (6.4-8.2)
[2017-07-19] MEDS ORDERED: ENOXAPARIN NA (PORCINE) 40 MG/0.4 ML DISP.SYRIN SQ SCH (10:00)
[2017-07-19] MEDS ORDERED: IRON BISGLYCINATE TD SCH (10:00)
[2017-07-19] MEDS ORDERED: VITAMIN B12 TD SCH (10:00)
--- NOTE | 2017-07-19 12:42 | PATH ---
Surgical Pathology Report Patient Name: ARASELI LOO [facility]. Rec. #: [id number] /Age/Gender: 1975 (Age: 41) / F Account: [id number] Location: [facility] MED/SURG Taken: 07/18/2017 Received: 07/18/2017 Reported: 07/19/2017 Physicians: Alisia Guerrero M.D. Specimen(s) Received A: UTERUS AND CERVIX B: ESSURE Clinical History Endometrial polyp, menorrhagia Final Diagnosis A. UTERUS AND CERVIX, HYSTERECTOMY: SECRETORY TYPE ENDOMETRIUM. ADENOMYOSIS, EXTENSIVE. CERVIX WITH SQUAMOUS METAPLASIA AND NABOTHIAN'S CYSTS. B. ESSURE, REMOVAL: METALLIC WIRE CONSISTENT WITH ESSURE (COOK CHEF, GROSS ONLY). Electronically Signed Courtney Sequeira M.D. Gross Description A. Received in formalin labeled "uterus and cervix," is a 176 g uterus with an attached cervix and no attached adnexa. The specimen measures 10.5 cm from superior to inferior, 7 cm from left to right and 6.2 cm from anterior to posterior. The serosa is griffin-pink and smooth. The attached cervix measures 3.5 cm in length and averages 2.6 cm in diameter. The ectocervix is griffin-pink, smooth and glistening. The endocervix is unremarkable. The endometrial cavity measures 4.5 cm in length and 3 cm from cornu to cornu. The endometrium is griffin-red and averages 0.1 cm in thickness. No definite endometrial polyps are identified. The myometrium is griffin and firm with whorled architecture, consistent with adenomyosis. The myometrium averages 3 cm in thickness. Charge Account Identification Clerk sections are submitted in 6 cassettes as follows: 1-anterior cervix; 2-posterior cervix; 5-1-bbsbieqx endomyometrium; 9-5-czjmekrzs endomyometrium. B. Received fresh labeled "Essure," are 4 fragments of lind metallic wire ranging from 0.4-1.4 cm in greatest dimension. No soft tissue is present. No sections are submitted, gross only. /07/18/2017 saudi/07/18/2017
--- NOTE | 2017-07-19 13:44 | PN ---
Progress Note (SOAP) - Subjective Chief Complaint: Pt doing well and desires to go home - Current Medications Current Medications: Active Medications Acetaminophen (Tylenol -) 650 mg PO Q24H PRN PRN Reason: HEADACHE Enoxaparin Sodium (Lovenox -) 40 mg SQ DAILY [facility] Last Admin: 07/19/17 10:26 Dose: 40 mg Hydromorphone HCl (Dilaudid -) 4 mg PO Q4H PRN PRN Reason: PAIN LEVEL 7 - 10 Lactated Ringer's (Lactated Ringers Solution) 1,000 mls @ 125 mls/hr IV ASDIR [facility] Last Admin: 07/19/17 12:23 Dose: 125 mls/hr Non-Formulary Medication (Vitamin B12 Patch) 1 adh.patch TD DAILY [facility] Oxycodone HCl (Roxicodone -) 10 mg PO Q4H PRN PRN Reason: PAIN LEVEL 1-5 Stop: 07/19/17 16:06 Last Admin: 07/19/17 10:26 Dose: 10 mg Simethicone (Mylicon -) 80 mg PO Q4H PRN PRN Reason: GAS Last Admin: 07/19/17 10:26 Dose: 80 mg - Objective Vital Signs: Vital Signs Temperature 98.5 F 07/19/17 07:00 Pulse Rate 55 L 07/19/17 07:00 Respiratory Rate 20 07/19/17 07:00 Blood Pressure 97/61 07/19/17 07:00 O2 Sat by Pulse Oximetry (%) 100 07/18/17 19:40 Constitutional: Yes: Well Nourished, No Distress Gastrointestinal: Yes: WNL, Soft Musculoskeletal: Yes: WNL Extremities: Yes: WNL Edema: No Wound/Incision: Yes: Clean/Dry, Dressing Dry and Intact Labs Lab Results: CBC, BMP 07/19/17 06:26 07/19/17 06:26 Problem List - Problems (1) Status post hysterectomy Code(s): Z90.710 - ACQUIRED ABSENCE OF BOTH CERVIX AND UTERUS Assessment/Plan POD 1 DC home RTO 1 week
[2017-07-19 14:43] VITALS: BP 100/70; PULSE 50; TEMP 99.1
== END 2017-07-19 14:53 | disposition home or self-care (01) ==
LOC: JASUSAT 05:05 → J8W 18:45 → JASUSAT 07-19 14:53
PROVIDERS: ATTEND Obstetrics & Gynecology
PROC: 8E0W4CZ Robotic Assisted Procedure of Trunk Region, Percutaneous Endoscopic Approach (ICD-10-PCS; 2017-07-18)
PROC: 0UT94ZZ Resection of Uterus, Percutaneous Endoscopic Approach (ICD-10-PCS; principal; 2017-07-18 08:00)
DX: D25.9 Leiomyoma of uterus, unspecified (principal); N92.0 Excessive and frequent menstruation with regular cycle; N84.0 Polyp of corpus uteri; R10.2 Pelvic and perineal pain
CPT/HCPCS: 58570; S2900; 36415; 80053; 84703; 85025; 85027; 86850; 86900; 86901; 88300-TC; 88307-TC; 94760; J0131

== ENCOUNTER 2017-07-23 09:29 | Emergency (ER) | payer BC, OTHER ==
[2017-07-23 09:41] VITALS: TEMP 98.2; BMI 24.9
[2017-07-23 10:53] LABS: BASO % 0.4 % (0-2.0); EOS % 4.3 % (0-4.5); HEMATOCRIT 35.5 % (32.4-45.2); HEMOGLOBIN 11.9 GM/dL (10.7-15.3); LYMPH % 36.2 % (8-40); MCH 29.9 pg (25.7-33.7); MCHC 33.4 g/dl (32.0-36.0); MEAN CELL VOLUME 89.3 fl (80-96); MEAN PLT VOLUME 9.6 fl (7.5-11.1); MONO % 6.8 % (3.8-10.2); NEUT % 52.3 % (42.8-82.8); PLATELET COUNT 218 K/MM3 (134-434); RBC 3.97 M/mm3 (3.60-5.2); RDW 13.8 % (11.6-15.6); WHITE BLOOD COUNT 4.6 K/mm3 (4.0-10.0)
[2017-07-23 11:15] LABS: ALBUMIN 3.8 g/dl (3.4-5.0); ANION GAP 7 (8-16); BLOOD UREA NITROGEN 9 mg/dL (7-18); CALCIUM 9.2 mg/dL (8.5-10.1); CHLORIDE 107 mmol/L (98-107); CO2 27 mmol/L (21-32); GLUCOSE,RANDOM 77 mg/dL (74-106); SGPT/ALT 25 U/L (12-78); SODIUM 141 mmol/L (136-145)
[2017-07-23 11:18] LABS: ALK PHOS 82 U/L (45-117); BILIRUBIN,TOTAL 0.9 mg/dL (0.2-1.0); CREATININE 0.6 mg/dL (0.55-1.02); TOT PROT 7.3 g/dl (6.4-8.2)
[2017-07-23 11:22] LABS: POTASSIUM 4.8 mmol/L (3.5-5.1); SGOT/AST 30 U/L (15-37)
--- NOTE | 2017-07-23 11:23 | PDOC ---
History of Present Illness - General Chief Complaint: Shortness of Breath Stated Complaint: SOB, POST OP PAIN Time Seen by Provider: 07/23/17 09:48 History Source: Patient Exam Limitations: No Limitations - History of Present Illness Initial Comments: 07/23/17 11:17 41-year-old female presents the ED with complaints of fullness to her epigastric area with a gurgling sound with deep inspiration for the past 2 days worsened with standing. Patient states had laparoscopic hysterectomy done last performed by Dr. Guerrero secondary to polyps and multiple D&Cs. Patient states procedure one uneventful and had no postoperative complications. Patient states has been voiding, eating, drinking and moving her bowels without difficulty. Patient states last took Percocet 3-4 days ago since her pain has improved to her lower abdomen. Patient has no other complaints at this time including fever, chills, chest pain, nausea or difficulty breathing while at rest. Patient contacted Dr. Guerrero who recommended she go to the ER and contact the anesthesiologist since she received a nerve block. Timing/Duration: other Severity: mild Associated Symptoms: reports: denies symptoms Past History - Travel Traveled outside of the country in the last 30 days: No - Past Medical History Allergies/Adverse Reactions: Allergies Allergy/AdvReac Type Severity Reaction Status Date / Time NSAIDS (Non-Steroidal AdvReac Verified 07/23/17 09:38 Anti-Inflamma Home Medications: Ambulatory Orders NK [No Known Home Medication] 07/23/17 Anemia: Yes Asthma: No Cancer: No Cardiac Disorders: No CVA: No COPD: No CHF: No Dementia: No Diabetes: No GI Disorders: No Disorders: No HTN: No Hypercholesterolemia: No Liver Disease: Yes (cyst) Seizures: No Thyroid Disease: No - Surgical History Abdominal Surgery: No Appendectomy: No Cardiac Surgery: No Cholecystectomy: No Lung Surgery: No Neurologic Surgery: No Orthopedic Surgery: Yes (R & L EXTENSOR TENDON REPAIR) - Immunization History Immunization Up to Date: Yes - Suicide/Smoking/Psychosocial Hx Smoking History: Never smoked Have you smoked in the past 12 months: No Hx Alcohol Use: No Drug/Substance Use Hx: No Substance Use Type: None Hx Substance Use Treatment: No Patient Lives Alone: No Lives with/in: spouse/SO Review of Systems - Review of Systems Able to Perform ROS?: No Constitutional: No: Symptoms Reported HEENTM: No: Symptoms Reported Respiratory: No: Symptoms reported Cardiac (ROS): No: Symptoms Reported ABD/GI: Yes: See HPI : No: Symptoms Reported Musculoskeletal: No: Symptoms Reported Integumentary: No: Symptoms Reported Neurological: No: Symptoms reported Endocrine: No: Symptoms Reported Hematologic/Lymphatic: No: Symptoms Reported *Physical Exam - Vital Signs Last Vital Signs Temp Pulse Resp BP Pulse Ox 98.2 F 57 L 18 103/74 100 07/23/17 09:38 07/23/17 09:38 07/23/17 09:38 07/23/17 09:38 07/23/17 09:38 - Physical Exam General Appearance: Yes: Nourished, Appropriately Dressed. No: Apparent Distress HEENT: positive: EOMI, SEBASTIAN. negative: Pale Conjunctivae Neck: positive: Supple Respiratory/Chest: positive: Lungs Clear, Normal Breath Sounds. negative: Respiratory Distress, Accessory Muscle Use Cardiovascular: positive: Regular Rhythm, Bradycardia. negative: Murmur Gastrointestinal/Abdominal: positive: Normal Bowel Sounds, Soft, Tenderness ( epigastric and upper periumbilical), Other (decision ). negative: Distended, Guarding, Rebound Extremity: positive: Normal Capillary Refill. negative: Pedal Edema Integumentary: positive: Normal Color, Warm, Moist Neurologic: positive: Normal Mood/Affect, Motor Strength 5/5 Heart Score/ECG Review - ECG Intrepretation Rhythm: Regular Rhythm ED Treatment Course - LABORATORY CBC & Chemistry Diagram: 07/23/17 10:50 07/23/17 10:50 - ADDITIONAL ORDERS Additional order review: 07/23/17 10:50 RBC 3.97 MCV 89.3 MCHC 33.4 RDW 13.8 MPV 9.6 Neutrophils % 52.3 D Lymphocytes % 36.2 D Monocytes % 6.8 Eosinophils % 4.3 D Basophils % 0.4 D - RADIOLOGY Radiology Studies Ordered: Category Date Time Status ABDOMEN & PELVIS CT W/O CONTR [CT] Stat CT Scan 07/23/17 10:27 Ordered CHEST X-RAY PORTABLE* [RAD] Stat Radiology 07/23/17 09:50 Completed Medical Decision Making - Medical Decision Making 07/23/17 11:26 In here for evaluation of epigastric pain along with gurgling sound with deep inspiration for the past 2-3 days. Patient states was told to come in by the surgeon Dr. Blackmon performed a hysterectomy 5 days ago without postoperative complications. Patient has no other complaints at this time including abdominal distention leading from the surgical sites or change in bowel pattern. Patient ordered for labs EKG and chest x-ray. Patient will likely require a CT to visualize the epigastric region to rule out fluid collection versus air versus seroma. 07/23/17 15:37 Laboratory Tests 07/23/17 07/23/17 07/23/17 10:50 10:50 11:36 WBC 4.6 D Hgb 11.9 Hct 35.5 Plt Count 218 D Neutrophils % 52.3 D D-Dimer Sodium 141 Potassium 4.8 Chloride 107 Carbon Dioxide 27 Anion Gap 7 L BUN 9 Creatinine 0.6 Random Glucose 77 Calcium 9.2 Total Bilirubin 0.9 AST 30 ALT 25 Alkaline Phosphatase 82 Total Protein 7.3 Albumin 3.8 Urine Ketones Negative Urine Nitrite Negative Ur Leukocyte Esterase Negative 07/23/17 12:05 WBC Hgb Hct Plt Count Neutrophils % D-Dimer 4697 H Sodium Potassium Chloride Carbon Dioxide Anion Gap BUN Creatinine Random Glucose Calcium Total Bilirubin AST ALT Alkaline Phosphatase Total Protein Albumin Urine Ketones Urine Nitrite Ur Leukocyte Esterase 07/23/17 15:40 CT shows subcutaneous air collection is noted probably on the basis of recent surgery. Pneumoperitoneum was also seen which may be on the postsurgical basis. Correlate clinically. Status post total hysterectomy comparison to prior study of 11/08/2016. Small amount of bilateral pelvic free fluid which could be postsurgical in nature. Physical development of diffuse appendiceal thickening is seen questionable possible acute versus chronic appendicitis. Punctate calcified intraluminal appendicolith is again noted. Case discussed with Dr. Blackmon and feels patient may be discharged home. Based on patient's elevated d-dimer and pleuritic pain will rule out PE. Patient ordered for bilateral duplex negative duplex along with chest CTA. Elevated d-dimer may be on the basis also of recent surgery. 07/23/17 17:07 Chest CTA and duplex negative for acute findings including DVT and PE. Patient be discharged home and will follow up with Dr. Alisia Guerrero *DC/Admit/Observation/Transfer Diagnosis at time of Disposition: Abdominal pain - Discharge Dispostion Disposition: HOME Condition at time of disposition: Good - Referrals Referrals: Cuong Canela MD [Primary Care Provider] - Alisia Guerrero MD [Staff Physician] - - Patient Instructions Printed Discharge Instructions: DI for Abdominal Pain-Adult Additional Instructions: Please follow-up with Dr. Alisia Guerrero as discussed and may take Tylenol for discomfort. If symptoms return or worsen please go to the nearest ER. - Post Discharge Activity
[2017-07-23 11:52] LABS: URINE APPEARANCE CLEAR; URINE BILIRUBIN NEGATIVE (<2.0 mg/dL); URINE BLOOD NEGATIVE (NEGATIVE); URINE COLOR STRAW; URINE GLUCOSE (UA) NEGATIVE (NEGATIVE); URINE KETONE NEGATIVE (NEGATIVE); URINE LEUK ESTERASE NEGATIVE (NEGATIVE); URINE NITRITE NEGATIVE (NEGATIVE); URINE PROTEIN NEGATIVE (NEGATIVE); URINE UROBILINOGEN NEGATIVE mg/dL (0.2-1.0)
--- NOTE | 2017-07-23 12:11 | EKG ---
Test Reason : Blood Pressure : / mmHG Vent. Rate : 050 BPM Atrial Rate : 050 BPM P-R Int : 146 ms QRS Dur : 090 ms QT Int : 470 ms P-R-T Axes : 017 064 046 degrees QTc Int : 428 ms SINUS BRADYCARDIA OTHERWISE NORMAL ECG Confirmed by MD FOZIA, BHAVESH ([id number]) on 07/23/2017 12:11:34 PM Referred By: Confirmed By:BHAVESH MARCELO MD
--- NOTE | 2017-07-23 12:35 | PDOC ---
*Physical Exam - Vital Signs Last Vital Signs Temp Pulse Resp BP Pulse Ox 98.2 F 57 L 18 103/74 100 07/23/17 09:38 07/23/17 09:38 07/23/17 09:38 07/23/17 09:38 07/23/17 09:38 - Physical Exam General Appearance: Yes: Appropriately Dressed HEENT: positive: Normal ENT Inspection Neck: positive: Trachea midline Respiratory/Chest: positive: Lungs Clear, Normal Breath Sounds, Other ( tenderness over xiphoid process) Cardiovascular: positive: Regular Rhythm, Regular Rate, S1, S2 Gastrointestinal/Abdominal: positive: Normal Bowel Sounds, Flat, Soft, Other ( approp post op tenderness suprapubic region. incisions cdi, no erythema no exudate). negative: Tender Extremity: positive: Normal Inspection. negative: Swelling, Calf Tenderness Integumentary: positive: Normal Color, Dry, Warm, Other (incisions healing well) Neurologic: positive: Fully Oriented, Alert, Normal Mood/Affect Heart Score/ECG Review #1 General ECG Interpretation: Sinus Rhythm, Normal Rate, Normal Intervals, No acute ischemic changes ED Treatment Course - LABORATORY CBC & Chemistry Diagram: 07/23/17 10:50 07/23/17 10:50 - ADDITIONAL ORDERS Additional order review: Laboratory Results 07/23/17 07/23/17 11:36 10:50 Sodium 141 Potassium 4.8 Chloride 107 Carbon Dioxide 27 Anion Gap 7 L BUN 9 Creatinine 0.6 Creat Clearance w eGFR > 60 Random Glucose 77 Calcium 9.2 Total Bilirubin 0.9 AST 30 ALT 25 Alkaline Phosphatase 82 Total Protein 7.3 Albumin 3.8 Urine Color Straw Urine Appearance Clear Urine pH 7.0 Ur Specific [place] 1.010 Urine Protein Negative Urine Glucose (UA) Negative Urine Ketones Negative Urine Blood Negative Urine Nitrite Negative Urine Bilirubin Negative Urine Urobilinogen Negative Ur Leukocyte Esterase Negative 07/23/17 10:50 RBC 3.97 MCV 89.3 MCHC 33.4 RDW 13.8 MPV 9.6 Neutrophils % 52.3 D Lymphocytes % 36.2 D Monocytes % 6.8 Eosinophils % 4.3 D Basophils % 0.4 D Medical Decision Making - Medical Decision Making 07/23/17 12:33 41-year-old female status post hysterectomy 6 days ago here today complaining of a popping sensation in her upper abdomen lower chest. Patient denies chest pain or shortness of breath no recent leg swelling. States that she has been mandatory following her surgery feels like there is a popping feeling inside her abdomen also tenderness at the upper abdomen no nausea no vomiting has been tolerating by mouth no other complaints on physical exam her lung exam is normal heart she does have tenderness over the distal xiphoid process that reproduces her pain abdomen is appropriately tenderness superpubic region with postop scar is healing well no distention and extremities are warm and well perfused no edema Differential includes gastritis muscle soreness related to robotic laparoscopic surgery xiphoid process bruising, however due to the patient's recent postop we' ll consider CT abdomen and pelvis labs and chest x-ray to rule out pneumonia or other infection. Patient seen in conjunction with Latricia Cheung agree with her plan assessment 07/23/17 14:39 FOCUSED ed US RUQ, INDICATION EPIGASTRIC PAIN RUQ SCANNED WITH PHASED ARRAY PROBE, GB VISUALIZED IN TR AND SAGGITAL PLAN WALL NORMAL, NO THICKENING, NO WALL EDEMA. NO PERICHOLECYSTIC FLUID. CBD NORMAL MEASURED 2.8MM NO SONOGRAPHIC RED'S SIGN IMPRESSIONS: NORMAL GALLBLADDER. *DC/Admit/Observation/Transfer - Referrals Referrals: Cuong Canela MD [Primary Care Provider] - - Patient Instructions - Post Discharge Activity
[2017-07-23 17:22] VITALS: BP 103/66; PULSE 55
== END 2017-07-23 17:22 | disposition home or self-care (01) ==
LOC: JER 09:29
DX: R10.84 Generalized abdominal pain (principal); G89.18 Other acute postprocedural pain; Z90.710 Acquired absence of both cervix and uterus
CPT/HCPCS: 36415; 71045-TC-FY; 71275-TC; 74176-TC; 80053; 81003; 85025; 85379; 93005; 93010; 93970-TC; 99283-25

== ENCOUNTER 2019-04-21 10:02 | Inpatient (IN) | payer BC, OTHER ==
[2019-04-21 10:16] VITALS: BMI 24.0
[2019-04-21] MEDS ORDERED: FAMOTIDINE 20 MG/50 ML IVPB 20 MG/50 ML MG IVPB ONE (10:42)
[2019-04-21] MEDS ORDERED: SODIUM CHLORIDE 1,000 ML IV STA (10:42)
[2019-04-21] MEDS ORDERED: ACETAMINOPHEN 1000 MG/100 ML VIAL (NON FORMULARY) IVPB ONE (10:42)
[2019-04-21] MEDS ORDERED: ONDANSETRON 4 MG/2 ML VIAL IVPUSH ONE (10:43)
--- NOTE | 2019-04-21 10:54 | PDOC ---
History of Present Illness - General Chief Complaint: Pain, Acute Stated Complaint: SHARP RT SIDE PAIN Time Seen by Provider: 04/21/19 10:24 History Source: Patient Exam Limitations: No Limitations - History of Present Illness Initial Comments: Leona De La Torre is a 43 yo F w a pmh of 3 abdominal surgeries (Tummy tuck, gastric sleeve, ), GERD, migraines, and anemia presents to the [facility] er accompanied by her with sharp RLQ abdominal pain which woke her up from sleep at 3 am and has been constant in nature since onset. The patient describes the pain as sharp and denies radiation to the groin but endorses occasional radiation to the back. She endorses nausea but no emesis. She states on top of her baseline constant abdominal pain she has spurts of intense pain rated 8/10 which come and go multiple times an hour. She says she still has her ovaries and they only took out her uterus. To the best of her knowledge when Dr. Small took out her uterus she was not told she had any ovarian cysts but she is not sure. She states her last bowel movement was 4 days ago on Saturday however this is standard for her as she always experiences constipation. Denies any recent diarrhea or bowel changes. Denies fevers, chills, chest pain, SOB, headache, blurry vision, dysuria, frequency, urgency, hematuria, vaginal discharge LMP: 2 years ago before hysterectomy PCP: Dr. Canela GI: Dr. Estrada Cutlet Maker Pork: Dr. small Neuro: Dr. Rider PSH: Tummy tuck, gastric sleeve, hysterectomy, Allergies: NSAIDS Social Hx: Denies drinking, smoking, or other substance abuse Past History - Past Medical History Allergies/Adverse Reactions: Allergies Allergy/AdvReac Type Severity Reaction Status Date / Time NSAIDS (Non-Steroidal AdvReac Verified 04/21/19 10:17 Anti-Inflamma Home Medications: Ambulatory Orders Multivitamin [Multiple Vitamins] 1 each PO DAILY 04/21/19 Anemia: Yes Asthma: No Cancer: No Cardiac Disorders: No CVA: No COPD: No CHF: No Dementia: No Diabetes: No GI Disorders: No Disorders: No HTN: No Hypercholesterolemia: No Liver Disease: Yes (cyst) Seizures: No Thyroid Disease: No - Surgical History Abdominal Surgery: No Appendectomy: No Cardiac Surgery: No Cholecystectomy: No Lung Surgery: No Neurologic Surgery: No Orthopedic Surgery: Yes (R & L EXTENSOR TENDON REPAIR) - Immunization History Immunization Up to Date: Yes - Psycho Social/Smoking Cessation Hx Smoking History: Never smoked Have you smoked in the past 12 months: No Hx Alcohol Use: No Drug/Substance Use Hx: No Substance Use Type: None Hx Substance Use Treatment: No Review of Systems - Review of Systems Able to Perform ROS?: Yes Comments:: CONSTITUTIONAL: Absent: fever, no chills, no fatigue EYES: Absent: visual changes ENT: Absent: ear pain, no sore throat CARDIOVASCULAR: Absent: chest pain, no palpitations RESPIRATORY: Absent: cough, no SOB GI: Present: Abdominal pain, nausea, constipation Absent: no vomiting, no diarrhea GENITOURINARY: Absent: dysuria, no frequency, no hematuria MUSKULOSKELETAL: Present: back pain Absent: no arthralgia, no myalgia SKIN: Absent: rash NEURO: Absent: headache *Physical Exam - Vital Signs Last Vital Signs Temp Pulse Resp BP Pulse Ox 98.2 F 72 16 103/65 99 04/21/19 10:14 04/21/19 10:14 04/21/19 10:14 04/21/19 10:14 04/21/19 10:14 - Physical Exam GENERAL: Well-appearing, well-nourished. Moderate distress. HEENT: Normocephalic, atraumatic. PERRL, EOM intact. CARDIOVASCULAR: Normal S1, S2. Regular rate and rhythm. PULMONARY: No evidence of respiratory distress. Lungs clear to auscultation bilaterally. No wheezing, rales or rhonchi. ABDOMEN: There is exquisite focal RLQ abdominal TTP. There is no RUQ, epigastric, suprapubic, ulana-umbilical or left sided abdominal discomfort. The bowel sounds are diffusely hyperactive. Abdomen is soft, non-distended, and there is no rebound or guarding. EXTREMITIES: Normal ROM in all four extremities. No gross deformities. SKIN: Warm, dry. No rash NEUROLOGICAL: No focal neurological deficits. PELVIC: There is no cervix. There is white physiologic discharge in the vaginal vault. There is right adnexal TTP. There is no left adnexal TTP. ED Treatment Course - LABORATORY CBC & Chemistry Diagram: 04/21/19 10:55 04/21/19 10:55 - RADIOLOGY Radiology Studies Ordered: Category Date Time Status ABDOMEN & PELVIS CT WITH CONTR [CT] Stat CT Scan 04/21/19 10:44 Ordered TRANSVAGINAL ULTRASOUND US [US] Stat Ultrasound 04/21/19 10:44 Ordered Radiograph Interpretation: TVUS: Transvaginal pelvic ultrasound. HISTORY: 43-year-old female with pelvic pain TECHNIQUE: Real-time transvaginal pelvic ultrasound with color-flow Doppler was performed by nuclear medicine pet ct technologist. Comparison is made to prior exam dated July 08, 2016 Provided LMP is 2018 status post hysterectomy. FINDINGS: The patient is status post hysterectomy. No mass or fluid collection seen in the uterine bed. No free pelvic fluid seen. The right ovary measures 3.1 x 2.2 x 1.6 cm containing small follicle and appear unremarkable. Arterial and venous blood flow seen to the right ovary. The left ovary measures 3.0 x 2.0 x 1.3 cm containing small follicle and appear unremarkable. Arterial and venous blood flow seen to the left ovary. IMPRESSION: Status post hysterectomy. No adnexal mass. Normal-appearing ovaries with no sonographic evidence of torsion. CTAP: HISTORY PROVIDED: Rule out appendicitis. Sequential axial images were obtained from the domes of the diaphragms through the symphysis pubis following the administration of both oral and intravenous contrast material. The lung bases are clear. The patient is S/P sleeve gastrectomy. The liver is normal in size and texture. There are multiple cysts scattered throughout the liver. The largest is within the left lobe measuring 2.2 cm. There is also a 1.6 cm right lobe cyst. No solid masses are identified within the liver. The spleen, pancreas, adrenal glands and kidneys demonstrate no significant abnormalities. The gallbladder is clear. There is no evidence of intra-abdominal or retroperitoneal lymphadenopathy or fluid collections. The patient is S/P mesh hernia repair of the anterior abdominal wall. There is no evidence of pneumoperitoneum, bowel obstruction or intra-abdominal abscess. The appendix is normal in caliber and does contain contrast material, indicative of patency. There is no CT evidence of acute appendicitis or diverticulitis. Examination of the pelvis demonstrates no evidence of pelvic masses, fluid collections or lymphadenopathy. The uterus has been. There is no evidence of acute bony abnormalities. IMPRESSION: 1. S/P sleeve gastrectomy, mass hernia repair and hysterectomy. 2. Multiple hepatic cysts. 3. No evidence of appendicitis, small bowel obstruction or acute pathology within the abdomen or pelvis. Please see above discussion. Medical Decision Making - Medical Decision Making Leona De La Torre is a 43 yo F w a pmh of 3 abdominal surgeries (Tummy tuck, gastric sleeve, ), GERD, migraines, and anemia presents to the [facility] er accompanied by her with sharp RLQ abdominal pain which woke her up from sleep at 3 am and has been constant in nature since onset. The patient describes the pain as sharp and denies radiation to the groin but endorses occasional radiation to the back. She endorses nausea but no emesis. She states on top of her baseline constant abdominal pain she has spurts of intense pain rated 8/10 which come and go multiple times an hour. She says she still has her ovaries and they only took out her uterus. To the best of her knowledge when Dr. Small took out her uterus she was not told she had any ovarian cysts but she is not sure. She states her last bowel movement was 4 days ago on Saturday however this is standard for her as she always experiences constipation. Denies any recent diarrhea or bowel changes. Vital Signs Temp Pulse Resp BP Pulse Ox 98.2 F 72 16 103/65 99 04/21/19 10:14 04/21/19 10:14 04/21/19 10:14 04/21/19 10:14 04/21/19 10:14 DDx IBNLT: Appendicitis, SBO, ovarian torsion, less likely UTI/pylo, renal colic , electrolyte/metabolic disturbance, ectopic Plan: Labs, Urine, EKG, TVUS, CTAP, analgesia, IV hydration, anti-emetics, re- assess Labs: Unremarkable Urine: unremarkable EKG: Sinus bradycardia rate of 59, narrow complexes, normal axis, no hypertrophy , no ST elevations or depressions, no abnormal TWI's, no Q waves, QTc 439, MO 136 TVUS: Normal-appearing ovaries with no sonographic evidence of torsion. CTAP: Multiple hepatic cysts. No evidence of appendicitis, small bowel obstruction or acute pathology within the abdomen or pelvis. SENIOR PRICING ANALYST Consult: I spoke with Dr. Small regarding the patient's findings. Dr. Small has re-assured me that this is not Torsion because the US was normal and this patient's clinical situation is not consistent with Torsion. Furthermore the patient is not the right age for torsion and given her hysterectomy it is unlikely this is gynecological in nature. Re-assessment: Despite essentially normal US and CT findings the patient still has a significant amount of abdominal pain which is not subsiding. The pain is located focally in the RLQ and is easily reproducible on palpation. The pain is also reproducible on pelvic exam as there is a significant amount of right adnexal tenderness. Disposition: Will admit the patient to hospital for persistent abdominal pain, serial abdominal exams, narcotic pain control, GI, SENIOR PRICING ANALYST, surgical and +/- Uro consults, and possibly advanced imaging with an MRI. Surgical Consult: I spoke with Dr. Hinkle who will not take this case because the patient's pain is in the lower abdomen and not close to the gastric sleeve. He believes this is a general surgeons domain as this can likely be related to the hernia mesh surgery. Discharge - Discharge Information Problems reviewed: Yes Clinical Impression/Diagnosis: Abdominal pain Qualifiers: Abdominal location: right lower quadrant Qualified Code(s): R10.31 - Right lower quadrant pain Condition: Stable - Admission Yes - Follow up/Referral - Patient Discharge Instructions - Post Discharge Activity
[2019-04-21] MEDS ORDERED: ACETAMINOPHEN INJECTION 100 ML IVPB ONE (10:59)
[2019-04-21] MEDS ORDERED: ONDANSETRON 4 MG/2 ML VIAL ONE (10:59)
[2019-04-21 11:07] LABS: BASO % 0.7 % (0-2.0); EOS % 0.7 % (0-4.5); HEMOGLOBIN 12.5 GM/dL (10.7-15.3); LYMPH % 37.9 % (8-40); MCH 30.4 pg (25.7-33.7); MCHC 33.7 g/dl (32.0-36.0); MEAN CELL VOLUME 90.2 fl (80-96); MEAN PLT VOLUME 8.9 fl (7.5-11.1); MONO % 8.4 % (3.8-10.2); NEUT % 52.3 % (42.8-82.8); PLATELET COUNT 179 K/MM3 (134-434); RDW 13.7 % (11.6-15.6); WHITE BLOOD COUNT 5.3 K/mm3 (4.0-10.0)
[2019-04-21 11:08] LABS: URINE APPEARANCE CLEAR; URINE BILIRUBIN NEGATIVE (NEGATIVE); URINE COLOR YELLOW; URINE GLUCOSE (UA) NEGATIVE (NEGATIVE); URINE KETONE NEGATIVE (NEGATIVE); URINE LEUK ESTERASE NEGATIVE (NEGATIVE); URINE NITRITE NEGATIVE (NEGATIVE); URINE PROTEIN NEGATIVE (NEGATIVE)
[2019-04-21 11:19] LABS: PROTHROMBIN TIME (PATIENT) 11.8 SEC (9.7-13.0)
[2019-04-21 11:22] LABS: ACTIVATED PTT 33.8 SECONDS (25.2-36.5)
[2019-04-21 11:32] LABS: ALBUMIN 3.8 g/dl (3.4-5.0); BLOOD UREA NITROGEN 12.5 mg/dL (7-18); CALCIUM 8.5 mg/dL (8.5-10.1); CREATININE 0.7 mg/dL (0.55-1.3); POTASSIUM 3.7 mmol/L (3.5-5.1); TOT PROT 6.9 g/dl (6.4-8.2)
[2019-04-21 11:34] LABS: PHOSPHOROUS 3.3 mg/dL (2.5-4.9)
--- NOTE | 2019-04-21 11:43 | PDOC ---
Attending Attestation - Resident Resident Name: Lamin Miller - ED Attending Attestation I have performed the following: I have examined & evaluated the patient, The case was reviewed & discussed with the resident, I agree w/resident's findings & plan - HPI HPI: 04/21/19 11:41 43 YOF with h/o abdominal surgeries (Tummy tuck, gastric sleeve, , Laparoscopic removal of bilateral essure. Bilateral salpingectomy. right ovarian cystectomy, REGIS), chronic pelvic pain/salpingitis, ovarian cyst, GERD, migraines, and anemia presents to the [facility] er accompanied by her with sharp RLQ abdominal pain which woke her up from sleep at 3 am and has been constant in nature since onset. a/w radiation to the back, nausea; no vomiting or diarrhea. \She says she still has her ovaries and they only took out her uterus. To the best of her knowledge when Dr. Guerrero took out her uterus she was not told she had any ovarian cysts but she is not sure. She states her last bowel movement was 4 days ago on Saturday however this is standard for her as she always experiences constipation. Denies any recent diarrhea or bowel changes. Denies fevers, chills, chest pain, SOB, headache, blurry vision, dysuria, frequency, urgency, hematuria, vaginal discharge LMP: 2 years ago before hysterectomy 04/21/19 11:43 - Physicial Exam PE: 04/21/19 11:41 Agree with the resident's HPI and PE as documented in the electronic medical record. NAD, well appearing, EOMI, PERRL, nl conjunctiva, anicteric; neck supple. lungs clear, RRR, abdomen soft RLQ TTP. No rebound, no guarding. Back nontender. BAILEY x4, no focal neuro deficits. No peripheral edema. normal color for ethnicity, WWP. pelvic exam done with resident, Dr Miller, rt adnexal tenderness; absent cervix , physiologic yellow discharge. 04/21/19 11:48 04/21/19 13:12 04/21/19 15:09 - Medical Decision Making 04/21/19 11:41 Vital Signs Temp Pulse Resp BP Pulse Ox 98.2 F 72 16 103/65 99 04/21/19 10:14 04/21/19 10:14 04/21/19 10:14 04/21/19 10:14 04/21/19 10:14 DDx abdominal pain: Renal colic, biliary colic, metabolic/electrolyte derangements. GERD, PUD, esophageal spasm, pancreatitis, hepatitis, constipation , colitis, gastroenteritis, cholecystitis, UTI, pyelonephritis, ileus, SBO/ bowel obstruction., medication side effect, hernia, appendicitis, diverticulitis , msk strain, mesenteric adenitis, psoas abscess. TOA, ovarian cyst/torsion, TOA. labs and lytes wnl, reassuring LFTS and lipase wnl. UA neg for infection. unlikely UTI/pyelo TVUS to eval for ovarian cyst/torsion results_unremarkable, no torsion, no cysts, s/p REGIS given RLQ pain, concern also for appy will need CT a/p with PO contrast, prior abdominal surgeries so will need PO contrast to elucidate results_ neg for appy. oral contrast through GI tract. s/p gastric sleeve, no obstruction. incidental hepatic cysts. The patient appears comfortable and states that pain is improved. Given medications tylenol, IVF, then morphine given severe pain, with some clinical improvement. Tolerating oral intake. Vital signs reviewed and are normal. On repeat physical exam, the abdomen is soft and nontender, no suggestive findings for acute abdominal process at this time. pelvic exam with rt adnexal tenderness, physiologic yellow vaginal discharge, no cervix. seen with Dr Boland, chaperoned exam 04/21/19 15:08 All diagnostics tests reviewed and discussed with the patient. unclear etiology of sx. due to persistent pain, with unremarkable workup, would like to admit for serial exam and subspecialty exam. discussed case with Dr Guerrero, who does not believe it's torsion based on history, ultrasound. based on exam, given her absent uterus and prior surgeries. unlikely pelvic based on exam. could be prior mesh related pain, surgical evaluation /cs with Roscoe Londono called and will come to evaluate unlikely bariatric issue, as pt without obstructive findings or upper abdominal pain/sx. admit to Dr Trinidad service, medical management and multidisciplinary eval. 04/21/19 18:04 Heart Score/ECG Review #1 ECG reviewed & interpreted by me at: 11:00 General ECG Interpretation: Sinus Rhythm, Normal Rate, Normal Intervals 04/21/19 12:29 EKG sinus bradycardia 59 bpm, no interval abnormalities, narrow QRS, ST and T wave segments and morphology normal. Nonspecific T wave abnormalities
[2019-04-21] MEDS ORDERED: DEXTROSE 5%-NORMAL SALINE 1,000 ML IV SCH (11:45)
[2019-04-21] MEDS ORDERED: morphine CARPU-JECT 4 MG/1 ML DISP.SYRIN IVPUSH ONE (14:38)
[2019-04-21] MEDS ORDERED: morphine SULFATE 4 MG/ML VIAL ONE (14:38)
--- NOTE | 2019-04-21 14:46 | EKG ---
Test Reason : Blood Pressure : / mmHG Vent. Rate : 059 BPM Atrial Rate : 059 BPM P-R Int : 136 ms QRS Dur : 092 ms QT Int : 444 ms P-R-T Axes : 015 085 059 degrees QTc Int : 439 ms SINUS BRADYCARDIA OTHERWISE NORMAL ECG WHEN COMPARED WITH ECG OF 23-JUL-2017 10:24, INVERTED T WAVES HAVE REPLACED NONSPECIFIC T WAVE ABNORMALITY IN ANTERIOR LEADS Confirmed by MD AUBREE, KIARA ([id number]) on 04/21/2019 2:45:46 PM Referred By: Confirmed By:KIARA MAK MD
[2019-04-21] MEDS: DEXTROSE 5%-NORMAL SALINE 1,000 ML IV SCH (16:20)
--- NOTE | 2019-04-21 16:57 | PN ---
Teaching Attending Note Name of Resident: Erica Tripathi ATTENDING PHYSICIAN STATEMENT I saw and evaluated the patient. I reviewed the resident's note and discussed the case with the resident. I agree with the resident's findings and plan as documented. SUBJECTIVE: Patient is a 43yof with PMHx of multiple abdominal surgeries(sleeve,mesh hernia repair, Tummy tuck, hysterectomy without oopherectomy) , GERD, migraines , anemia presents to the ED for RLQ abdominal pain that began last night. Describes pain 10/10 relieved by morphine. No fever or chills, no shortness of breath. OBJECTIVE: Vital Signs Temperature 98.2 F 04/21/19 10:14 Pulse Rate 72 04/21/19 10:14 Respiratory Rate 16 04/21/19 10:14 Blood Pressure 103/65 04/21/19 10:14 O2 Sat by Pulse Oximetry (%) 99 04/21/19 10:14 GENERAL: The patient is awake, alert, and fully oriented, in no acute distress. HEAD: Normal with no signs of trauma. EYES: PERRL, extraocular movements intact, sclera anicteric, conjunctiva clear. ENT: Ears normal, oropharynx clear without exudates, moist mucous membranes. NECK: Trachea midline, full range of motion, supple. LUNGS: Breath sounds equal, clear to auscultation bilaterally, no wheezes, no crackles, no accessory muscle use. HEART: Regular rate and rhythm, S1, S2 without murmur, rub or gallop. ABDOMEN: Soft, Positive RLQ tenderness, ND, + BS, no guarding, no rebound, no hepatosplenomegaly, no masses. EXTREMITIES: 2+ pulses, warm, well-perfused, no edema. NEUROLOGICAL: Cranial nerves II through XII grossly intact. Normal speech, gait not observed. PSYCH: Normal mood, normal affect. SKIN: Warm, dry, normal turgor, no rashes or lesions noted CBCD WBC 5.3 K/mm3 (4.0-10.0) 04/21/19 10:55 RBC 4.10 M/mm3 (3.60-5.2) 04/21/19 10:55 Hgb 12.5 GM/dL (10.7-15.3) 04/21/19 10:55 Hct 37.0 % (32.4-45.2) 04/21/19 10:55 MCV 90.2 fl (80-96) 04/21/19 10:55 MCHC 33.7 g/dl (32.0-36.0) 04/21/19 10:55 RDW 13.7 % (11.6-15.6) 04/21/19 10:55 Plt Count 179 K/MM3 (134-434) 04/21/19 10:55 MPV 8.9 fl (7.5-11.1) 04/21/19 10:55 CMP Sodium 141 mmol/L (136-145) 04/21/19 10:55 Potassium 3.7 mmol/L (3.5-5.1) 04/21/19 10:55 Chloride 110 mmol/L (98-107) H 04/21/19 10:55 Carbon Dioxide 26 mmol/L (21-32) 04/21/19 10:55 Anion Gap 6 MMOL/L (8-16) L 04/21/19 10:55 BUN 12.5 mg/dL (7-18) 04/21/19 10:55 Creatinine 0.7 mg/dL (0.55-1.3) 04/21/19 10:55 Random Glucose 69 mg/dL (74-106) L 04/21/19 10:55 Calcium 8.5 mg/dL (8.5-10.1) 04/21/19 10:55 Total Bilirubin 1.0 mg/dL (0.2-1) 04/21/19 10:55 AST 15 U/L (15-37) 04/21/19 10:55 ALT 18 U/L (13-61) 04/21/19 10:55 Alkaline Phosphatase 58 U/L (45-117) 04/21/19 10:55 Total Protein 6.9 g/dl (6.4-8.2) 04/21/19 10:55 Albumin 3.8 g/dl (3.4-5.0) 04/21/19 10:55 Current Medications Generic Name Dose Route Start Last Admin Trade Name Freq PRN Reason Stop Dose Admin Dextrose/Sodium Chloride 1,000 mls @ 100 mls/hr 04/21/19 11:45 04/21/19 13:00 D5-Ns - IV 100 mls/hr ASDIR CORINE Administration Dextrose/Sodium Chloride 1,000 mls @ 100 mls/hr 04/21/19 16:00 04/21/19 16:20 D5-Ns - IV Not Given ASDIR CORINE Vaginal US: s/p hysterectomy, no adnexal mass, normal appearing ovaries with no sonographic evidence of torsion. CT of abdomen and pelvis: s/p sleeve gastrectomy, mesh hernia repair and hysterectomy, multiple hepatic cysts, no evidence of appendicitis or SBO or acute pathology within the abdomen and pelvis. ASSESSMENT AND PLAN: Patient is a 43yof with PMHx of multiple abdominal surgeries(sleeve,mesh hernia repair, Tummy tuck, hysterectomy without oopherectomy) , GERD, migraines , anemia presents to the ED for RLQ abdominal pain that began last night. #Acute RLQ pain: Ct abdomen and vaginal US as above. for consult, seen patient in the past for her hernia repair. seen dr Mcgraw for hysterectomy. discussed with both consults, patient will be evaluated. Morphin for pain. IVF continue at 150cc/hr npo DVT px: scds for now
--- NOTE | 2019-04-21 17:17 | HP ---
CHIEF COMPLAINT: abdominal pain PCP:Hilton HISTORY OF PRESENT ILLNESS: 43 yo F w/ PMH of multiple abdominal surgeries, GERD, migraines, anemia presents to the ED for RLQ abdominal pain that began last night. she describes it as a sharp stabbing nonradiating pain. the pain waxes and wanes, at its worst its a 8/10. she states that while she was at work, the pain was so severe she felt short of breath. she endorses nausea and some dizziness. She states that she has never has this pain in the past. she states that she follows with Dr. Estrada for inflammation of her intestines, which she already completed a course of antibiotics. At that time she states she felt bloating as opposed to pain. Her last BM was on Saturday ER course was notable for: (1)CT abdomen pelvis (2)transvaginal u/s (3)2 L IVF, pepcid Recent Travel: [place] in [place] PAST MEDICAL HISTORY: see above PAST SURGICAL HISTORY: Tummy tuck, gastric sleeve, Social History: Smoking:denies Alcohol:denies Drugs: denies Allergies NSAIDS (Non-Steroidal Anti-Inflamma Adverse Reaction (Verified 04/21/19 10:17) HOME MEDICATIONS: Home Medications Medication Instructions Recorded NK [No Known Home Medication] 07/23/17 REVIEW OF SYSTEMS CONSTITUTIONAL: Absent: fever, chills, diaphoresis, generalized weakness, malaise, loss of appetite, weight change HEENT: Absent: rhinorrhea, nasal congestion, throat pain, throat swelling, difficulty swallowing, mouth swelling, ear pain, eye pain, visual changes CARDIOVASCULAR: Absent: chest pain, syncope, palpitations, irregular heart rate, lightheadedness , peripheral edema RESPIRATORY: Absent: cough, shortness of breath, dyspnea with exertion, orthopnea, wheezing, stridor, hemoptysis GASTROINTESTINAL: Present: abdominal pain , nausea Absent: abdominal distension, vomiting, diarrhea, constipation, melena, hematochezia GENITOURINARY: Absent: dysuria, frequency, urgency, hesitancy, hematuria, flank pain, genital pain MUSCULOSKELETAL: Absent: myalgia, arthralgia, joint swelling, back pain, neck pain SKIN: Absent: rash, itching, pallor HEMATOLOGIC/IMMUNOLOGIC: Absent: easy bleeding, easy bruising, lymphadenopathy, frequent infections ENDOCRINE: Absent: unexplained weight gain, unexplained weight loss, heat intolerance, cold intolerance NEUROLOGIC: Present: dizziness Absent: headache, focal weakness or paresthesias, unsteady gait, seizure, mental status changes, bladder or bowel incontinence PHYSICAL EXAMINATION Vital Signs - 24 hr 04/21/19 10:14 Temperature 98.2 F Pulse Rate 72 Respiratory 16 Rate Blood Pressure 103/65 O2 Sat by Pulse 99 Oximetry (%) GENERAL: Awake, alert, and fully oriented, in no acute distress. HEAD: Normal with no signs of trauma. EYES: Pupils equal, round and reactive to light, extraocular movements intact EARS, NOSE, THROAT: oropharynx clear without exudates. Moist mucous membranes. NECK: Normal range of motion, supple without lymphadenopathy, JVD, or masses. LUNGS: Breath sounds equal, clear to auscultation bilaterally. No wheezes, and no crackles. No accessory muscle use. HEART: Regular rate and rhythm, normal S1 and S2 without murmur, rub or gallop. ABDOMEN: Soft, tender to palpation of RLQ, mildly tender LLQ, not distended, normoactive bowel sounds, + guarding RLQ, no rebound, no masses. MUSCULOSKELETAL: Normal range of motion at all joints. No bony deformities or tenderness. No CVA tenderness. UPPER EXTREMITIES: 2+ pulses, warm, well-perfused. No cyanosis. No clubbing. No peripheral edema. LOWER EXTREMITIES: 2+ pulses, warm, well-perfused. No calf tenderness. No peripheral edema. NEUROLOGICAL: Cranial nerves II-XII intact. Normal speech. PSYCHIATRIC: Cooperative. Good eye contact. Appropriate mood and affect. SKIN: Warm, dry, normal turgor, no rashes or lesions noted, normal capillary refill. Laboratory Last Values WBC 5.3 K/mm3 (4.0-10.0) 04/21/19 10:55 RBC 4.10 M/mm3 (3.60-5.2) 04/21/19 10:55 Hgb 12.5 GM/dL (10.7-15.3) 04/21/19 10:55 Hct 37.0 % (32.4-45.2) 04/21/19 10:55 MCV 90.2 fl (80-96) 04/21/19 10:55 MCH 30.4 pg (25.7-33.7) 04/21/19 10:55 MCHC 33.7 g/dl (32.0-36.0) 04/21/19 10:55 RDW 13.7 % (11.6-15.6) 04/21/19 10:55 Plt Count 179 K/MM3 (134-434) 04/21/19 10:55 MPV 8.9 fl (7.5-11.1) 04/21/19 10:55 Absolute Neuts (auto) 2.8 K/mm3 (1.5-8.0) 04/21/19 10:55 Neutrophils % 52.3 % (42.8-82.8) 04/21/19 10:55 Lymphocytes % 37.9 % (8-40) 04/21/19 10:55 Monocytes % 8.4 % (3.8-10.2) 04/21/19 10:55 Eosinophils % 0.7 % (0-4.5) D 04/21/19 10:55 Basophils % 0.7 % (0-2.0) 04/21/19 10:55 Nucleated RBC % 0 % (0-0) 04/21/19 10:55 PT with INR 11.80 SEC (9.7-13.0) 04/21/19 10:55 INR 1.00 (0.83-1.09) 04/21/19 10:55 PTT (Actin FS) 33.8 SECONDS (25.2-36.5) 04/21/19 10:55 Sodium 141 mmol/L (136-145) 04/21/19 10:55 Potassium 3.7 mmol/L (3.5-5.1) 04/21/19 10:55 Chloride 110 mmol/L (98-107) H 04/21/19 10:55 Carbon Dioxide 26 mmol/L (21-32) 04/21/19 10:55 Anion Gap 6 MMOL/L (8-16) L 04/21/19 10:55 BUN 12.5 mg/dL (7-18) 04/21/19 10:55 Creatinine 0.7 mg/dL (0.55-1.3) 04/21/19 10:55 Est GFR (CKD-EPI)AfAm 123.86 04/21/19 10:55 Est GFR (CKD-EPI)NonAf 106.87 04/21/19 10:55 Random Glucose 69 mg/dL (74-106) L 04/21/19 10:55 Lactic Acid 1.0 mmol/L (0.4-2.0) 04/21/19 10:55 Calcium 8.5 mg/dL (8.5-10.1) 04/21/19 10:55 Phosphorus 3.3 mg/dL (2.5-4.9) 04/21/19 10:55 Magnesium 2.0 mg/dL (1.8-2.4) 04/21/19 10:55 Total Bilirubin 1.0 mg/dL (0.2-1) 04/21/19 10:55 AST 15 U/L (15-37) 04/21/19 10:55 ALT 18 U/L (13-61) 04/21/19 10:55 Alkaline Phosphatase 58 U/L (45-117) 04/21/19 10:55 Total Protein 6.9 g/dl (6.4-8.2) 04/21/19 10:55 Albumin 3.8 g/dl (3.4-5.0) 04/21/19 10:55 Lipase 173 U/L (73-393) 04/21/19 10:55 Urine Color Yellow 04/21/19 10:55 Urine Appearance Clear 04/21/19 10:55 Urine pH 7.0 (5.0-8.0) 04/21/19 10:55 Ur Specific [place] 1.024 (1.010-1.035) 04/21/19 10:55 Urine Protein Negative (NEGATIVE) 04/21/19 10:55 Urine Glucose (UA) Negative (NEGATIVE) 04/21/19 10:55 Urine Ketones Negative (NEGATIVE) 04/21/19 10:55 Urine Blood Negative (NEGATIVE) 04/21/19 10:55 Urine Nitrite Negative (NEGATIVE) 04/21/19 10:55 Urine Bilirubin Negative (NEGATIVE) 04/21/19 10:55 Urine Urobilinogen 1.0 mg/dL (0.2-1.0) 04/21/19 10:55 Ur Leukocyte Esterase Negative (NEGATIVE) 04/21/19 10:55 Blood Type O POSITIVE 04/21/19 10:55 Antibody Screen Negative 04/21/19 10:55 ASSESSMENT/PLAN: 43 yo F w/ PMH of multiple abdominal surgeries, GERD, migraines, anemia presents to the ED for RLQ abdominal pain that began last night. Pt is admitted for intractable abdominal pain Abdominal pain r/o adhesions - no leukocytosis, afebrile - UA neg - CT Abdomen / pelvis : IMPRESSION: 1. S/P sleeve gastrectomy, mass hernia repair and hysterectomy. 2. Multiple hepatic cysts. 3. No evidence of appendicitis, small bowel obstruction or acute pathology within the abdomen or pelvis. - PROGRESS WORKER , Dr. Guerrero evaluated pt and thinks its unlikely state director cause of pain , unlike ovarian torsion - Surgery consult pending, Dr. Bashir - NPO , IVF - morpine 2 mg q6h for pain - pt has colonoscopy planned for saturday with Dr. Estrada -pending U/S bladder - Transvainal u/s : IMPRESSION: Status post hysterectomy. No adnexal mass. Normal-appearing ovaries with no sonographic evidence of torsion. F/E/N - NPO -monitor lytes -IV LR @ 125 mls/hr DVT ppx: SCDs Dispo: admit to medicine Visit type - Emergency Visit Emergency Visit: Yes ED Registration Date: 04/21/19 Care time: The patient presented to the Emergency Department on the above date and was hospitalized for further evaluation of their emergent condition. - New Patient This patient is new to me today: Yes Date on this admission: 04/21/19 - Critical Care Critical Care patient: No ATTENDING PHYSICIAN STATEMENT I saw and evaluated the patient. I reviewed the resident's note and discussed the case with the resident. I agree with the resident's findings and plan as documented. SUBJECTIVE: OBJECTIVE: ASSESSMENT AND PLAN:
[2019-04-21] MEDS ORDERED: LACTATED RINGERS SOLUTION 1,000 ML IV SCH (17:30)
[2019-04-21] MEDS: LACTATED RINGERS SOLUTION 1,000 ML IV SCH (18:13)
[2019-04-21] MEDS ORDERED: LACTATED RINGERS SOLUTION 1,000 ML/1,000 ML INFUS.BAG IV SCH (18:15)
[2019-04-21] MEDS: MORPHINE SULFATE 2 MG/ML VIAL IVPUSH PRN (18:39)
--- NOTE | 2019-04-21 19:08 | CON.OBG ---
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 Pt with hx of hysterectomy by myself PMH of multiple abdominal surgeries, GERD, migraines, anemia presents to the ED for RLQ abdominal pain that began last night. 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 hernia surgery - Alcohol/Substance Use Hx Alcohol Use: No History of Substance Use: reports: None - Smoking History Smoking history: Never smoked Have you smoked in the past 12 months: No - Social History History of Recent Travel: No Home Medications - Allergies Allergies/Adverse Reactions: Allergies Allergy/AdvReac Type Severity Reaction Status Date / Time NSAIDS (Non-Steroidal AdvReac Verified 04/21/19 10:17 Anti-Inflamma - Home Medications Home Medications: Ambulatory Orders Multivitamin [Multiple Vitamins] 1 each PO DAILY 04/21/19 Review of Systems - Review of Systems Constitutional: reports: No Symptoms Neck: reports: No Symptoms Cardiovascular: reports: No Symptoms Respiratory: reports: No Symptoms Gastrointestinal: reports: Abdominal Pain Genitourinary: reports: No Symptoms Breasts: reports: No Symptoms Reported Musculoskeletal: reports: No Symptoms Neurological: reports: No Symptoms Endocrine: reports: No Symptoms Hematology/Lymphatic: reports: No Symptoms Physical Exam-NEUROLOGY EPILEPSY PHYSICIAN Vital Signs: Vital Signs Temperature 98.4 F 04/21/19 18:00 Pulse Rate 58 L 04/21/19 18:00 Respiratory Rate 18 04/21/19 18:00 Blood Pressure 111/72 04/21/19 18:00 O2 Sat by Pulse Oximetry (%) 99 04/21/19 18:26 Constitutional: Yes: Well Nourished, Mild Distress Gastrointestinal: Yes: Tenderness (right) Pelvis: Yes: WNL Vaginal Exam: Yes: Normal Adnexa: Normal: Left, Right Edema: No Labs: CBC, BMP 04/21/19 10:55 04/21/19 10:55 Problem List - Problems (1) Abdominal pain Problems reviewed: Yes Code(s): R10.9 - UNSPECIFIED ABDOMINAL PAIN Qualifiers: Abdominal location: right lower quadrant Qualified Code(s): R10.31 - Right lower quadrant pain (2) Status post hysterectomy Problems reviewed: Yes Code(s): Z90.710 - ACQUIRED ABSENCE OF BOTH CERVIX AND UTERUS Assessment/Plan SHARP right abdominal pain hx of hysterectomy torsion ruled out - normal usg and normal pelvic exam Hx of hernia with mesh Plan would recommend surgical and possible urology consult - tenderness near bladder usg of bladder? Will follow
[2019-04-22] MEDS: MORPHINE SULFATE 2 MG/ML VIAL IVPUSH PRN ×2 (00:35→16:05)
[2019-04-22] MEDS ORDERED: ACETAMINOPHEN 1000 MG/100 ML VIAL (NON FORMULARY) IVPB ONE ×2 (03:03→09:30)
[2019-04-22 07:40] LABS: BASO % 0.8 % (0-2.0); EOS % 1.2 % (0-4.5); HEMATOCRIT 33.6 % (32.4-45.2); HEMOGLOBIN 11.6 GM/dL (10.7-15.3); LYMPH % 46.2 % (8-40); MCH 30.9 pg (25.7-33.7); MCHC 34.5 g/dl (32.0-36.0); MEAN CELL VOLUME 89.7 fl (80-96); MEAN PLT VOLUME 8.8 fl (7.5-11.1); MONO % 9.7 % (3.8-10.2); NEUT % 42.1 % (42.8-82.8); PLATELET COUNT 165 K/MM3 (134-434); RBC 3.75 M/mm3 (3.60-5.2); RDW 13.6 % (11.6-15.6); WHITE BLOOD COUNT 4.4 K/mm3 (4.0-10.0)
--- NOTE | 2019-04-22 07:55 | CON.GI ---
Consult Consult Specialty:: GI Referred by:: Dr Erica Tripathi Reason for Consultation:: RLQ pain - History of Present Illness History of Present Illness: Patient is a 43 y/o multiple abdominal surgeries, GERD, and anemia. Consult was placed for RLQ pain. Patient states pain began on 04/20/19. She describes her RLQ pain as stabbing in nature, non radiating, and 8/10. Her pain was accompanied with nausea, but denies vomiting, diarrhea. She says there where no alleviating or exacerbating factors. She complains of constipation. Denies rectal bleeding or abnormal weight loss. 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 hernia surgery - Alcohol/Substance Use Hx Alcohol Use: No History of Substance Use: reports: None - Smoking History Smoking history: Never smoked Have you smoked in the past 12 months: No - Social History ADL: Independent History of Recent Travel: No Home Medications - Allergies Allergies/Adverse Reactions: Allergies Allergy/AdvReac Type Severity Reaction Status Date / Time NSAIDS (Non-Steroidal AdvReac Verified 04/21/19 10:17 Anti-Inflamma - Home Medications Home Medications: Ambulatory Orders Multivitamin [Multiple Vitamins] 1 each PO DAILY 04/21/19 Review of Systems - Review of Systems Constitutional: reports: No Symptoms Eyes: reports: No Symptoms HENT: reports: No Symptoms Neck: reports: No Symptoms Cardiovascular: reports: No Symptoms Respiratory: reports: No Symptoms Gastrointestinal: reports: Abdominal Pain, Constipation, Nausea Genitourinary: reports: No Symptoms Breasts: reports: No Symptoms Reported Musculoskeletal: reports: No Symptoms Integumentary: reports: No Symptoms Neurological: reports: No Symptoms Endocrine: reports: No Symptoms Hematology/Lymphatic: reports: No Symptoms Psychiatric: reports: No Symptoms Physical Exam-GI Vital Signs: Vital Signs Temperature 98.3 F 04/22/19 05:20 Pulse Rate 56 L 04/22/19 05:20 Respiratory Rate 18 04/22/19 05:20 Blood Pressure 109/70 03/04/20 05:20 O2 Sat by Pulse Oximetry (%) 99 04/21/19 21:00 Constitutional: Yes: No Distress, Calm Eyes: Yes: Conjunctiva Clear HENT: Yes: Atraumatic Cardiovascular: Yes: Regular Rate and Rhythm Respiratory: Yes: Regular, CTA Bilaterally Gastrointestinal Inspection: Yes: Scars. No: WNL, Ascites, Distention, Hernia, Other ...Auscultate: Yes: Hypoactive Bowel Sounds. No: Normoactive Bowel Sounds, Hyperactive Bowel Sounds, No Bowel Sounds, Other ...Palpate: Yes: Tenderness (ruq and rlq). No: Firm/Rigid, Guarding, Hepatomegaly, Mass, Pulsatile Mass, Soft, Splenomegaly, Tenderness, Epigastium, Tenderness, Rebound, Other ...Percussion: Yes: Tympanitic. No: Dullness, Fluid Wave, Other Neurological: Yes: Alert, Oriented Psychiatric: Yes: Alert, Oriented Labs: CBC, BMP 04/22/19 07:20 INR, PTT INR 1.00 (0.83-1.09) 04/21/19 10:55 Home Medication List Medication Instructions Recorded Confirmed Type Multivitamin [Multiple Vitamins] 1 each PO DAILY 04/21/19 04/21/19 History Active Medications Generic Name Dose Route Start Last Admin Trade Name Freq PRN Reason Stop Dose Admin Dextrose/Sodium Chloride 1,000 mls @ 100 mls/hr 04/21/19 16:00 04/21/19 16:20 D5-Ns - IV Not Given ASDIR CORINE Lactated Ringer's 1,000 mls @ 125 mls/hr 04/21/19 18:02 04/21/19 18:13 Lactated Ringers Solution IV 125 mls/hr ASDIR CORINE Administration Morphine Sulfate 2 mg 04/21/19 17:21 04/22/19 00:35 Morphine Sulfate IVPUSH 2 mg Q6H PRN Administration PAIN LEVEL 7 - 10 Imaging - Results Cat Scan: Report Reviewed Ultrasound: Report Reviewed Problem List - Problems (1) Abdominal pain Assessment/Plan: RLQ pain, R/O IBS vs cecal pathology neoplasm R>outpatient colonoscopy IV hydration Flagyl 250mg PO TID x 14 days Code(s): R10.9 - UNSPECIFIED ABDOMINAL PAIN Qualifiers: Abdominal location: right lower quadrant Qualified Code(s): R10.31 - Right lower quadrant pain (2) Hepatic cyst Assessment/Plan: R>repeat US in 1 year follow up as outpatient for chronic liver workup Code(s): K76.89 - OTHER SPECIFIED DISEASES OF LIVER
[2019-04-22 08:07] LABS: ALBUMIN 3.4 g/dl (3.4-5.0); BILIRUBIN,TOTAL 1.2 mg/dL (0.2-1); BLOOD UREA NITROGEN 6.1 mg/dL (7-18); CALCIUM 8.7 mg/dL (8.5-10.1); CREATININE 0.7 mg/dL (0.55-1.3); MAGNESIUM 2.2 mg/dL (1.8-2.4); PHOSPHOROUS 3.8 mg/dL (2.5-4.9); POTASSIUM 3.9 mmol/L (3.5-5.1); TOT PROT 6.3 g/dl (6.4-8.2)
--- NOTE | 2019-04-22 08:18 | CONSULT ---
- Consultation REQUESTING PROVIDER: CONSULT REQUEST: We have been asked to surgically evaluate this patient for RLQ abd pain PCP:Yuko Sauer HISTORY OF PRESENT ILLNESS: 43yo F was consulted to surgery to evaluate RLQ pain x 3 days. Pt states that pain started suddenly and was severe, but has since gotten much better. Pt denies pain radiating. Denies fever/chills. Admits some mild nause but no vomiting. Denies diarrhea, complains of some mild constipation which is normal for her. Pt had multiple abd surgeries in the past including Gastric sleeve 2017, Ventral hernia repair, 2009, Hysterectomy, and abdominalplasty 2003. PMHx: migraines PSHx: see above Home Medications Medication Instructions Recorded Multivitamin [Multiple Vitamins] 1 each PO DAILY 04/21/19 Allergies Allergy/AdvReac Type Severity Reaction Status Date / Time NSAIDS (Non-Steroidal AdvReac Verified 04/21/19 10:17 Anti-Inflamma REVIEW OF SYSTEMS: CONSTITUTIONAL: Absent: fever, chills, diaphoresis, generalized weakness, malaise, loss of appetite, weight change CARDIOVASCULAR: Absent: chest pain, syncope, palpitations, irregular heart rate, lightheadedness, peripheral edema RESPIRATORY: Absent: cough, shortness of breath, dyspnea with exertion, wheezing, stridor, hemoptysis GASTROINTESTINAL: Absent: abdominal distension, nausea, vomiting, diarrhea, melena, hematochezia GENITOURINARY: Absent: dysuria, frequency, urgency, hesitancy, hematuria, flank pain, genital pain MUSCULOSKELETAL: Absent: myalgia, arthralgia, joint swelling, back pain, neck pain SKIN: Absent: rash, itching, pallor HEMATOLOGIC/IMMUNOLOGIC: Absent: easy bleeding, easy bruising, lymphadenopathy NEUROLOGIC: Absent: headache, focal weakness, paresthesias, dizziness, unsteady gait, seizure, mental status changes, bladder or bowel incontinence PHYSICAL EXAM: GENERAL: Awake, alert, and fully oriented, in no acute distress. HEAD: Normal with no signs of trauma. EYES: PERRL, sclera anicteric, conjunctiva clear. NECK: Normal ROM, JVD, or masses. LUNGS: Clear to auscultation bilat anteriorly. No wheezes, and no crackles. No accessory muscle use. HEART: Regular rate and rhythm. No murmurs ABDOMEN: Soft, mild RLQ tenderness, not distended, no guarding, no rebound, no masses. No organomegaly. MUSCULOSKELETAL: Normal ROM at all joints. No bony deformities or tenderness. No CVA tenderness. UPPER EXTREMITIES: warm, well-perfused. No cyanosis. No peripheral edema. LOWER EXTREMITIES: warm, well-perfused. No calf tenderness. No peripheral edema. NEUROLOGICAL: Normal speech, gait not observed. PSYCH: Cooperative. Good eye contact. Appropriate mood and affect. SKIN: Warm, dry, normal turgor, no rashes or lesions noted. Vital Signs Temperature 98.3 F 04/22/19 05:20 Pulse Rate 56 L 04/22/19 05:20 Respiratory Rate 18 04/22/19 05:20 Blood Pressure 109/70 04/22/19 05:20 O2 Sat by Pulse Oximetry (%) 99 04/21/19 21:00 Lab Results WBC 4.4 K/mm3 (4.0-10.0) 04/22/19 07:20 RBC 3.75 M/mm3 (3.60-5.2) 04/22/19 07:20 Hgb 11.6 GM/dL (10.7-15.3) 04/22/19 07:20 Hct 33.6 % (32.4-45.2) 04/22/19 07:20 MCV 89.7 fl (80-96) 04/22/19 07:20 MCHC 34.5 g/dl (32.0-36.0) 04/22/19 07:20 RDW 13.6 % (11.6-15.6) 04/22/19 07:20 Plt Count 165 K/MM3 (134-434) 04/22/19 07:20 Sodium 138 mmol/L (136-145) 04/22/19 07:20 Potassium 3.9 mmol/L (3.5-5.1) 04/22/19 07:20 Chloride 106 mmol/L (98-107) 04/22/19 07:20 Carbon Dioxide 28 mmol/L (21-32) 04/22/19 07:20 Anion Gap 5 MMOL/L (8-16) L 04/22/19 07:20 BUN 6.1 mg/dL (7-18) L 04/22/19 07:20 Creatinine 0.7 mg/dL (0.55-1.3) 04/22/19 07:20 Random Glucose 92 mg/dL (74-106) 04/22/19 07:20 Calcium 8.7 mg/dL (8.5-10.1) 04/22/19 07:20 Blood Type O POSITIVE 04/21/19 10:55 Antibody Screen Negative 04/21/19 10:55 INR 1.00 (0.83-1.09) 04/21/19 10:55 CT Abdomen / pelvis : IMPRESSION: 1. S/P sleeve gastrectomy, mass hernia repair and hysterectomy. 2. Multiple hepatic cysts. 3. No evidence of appendicitis, small bowel obstruction or acute pathology within the abdomen or pelvis. Transvaginal u/s : IMPRESSION: Status post hysterectomy. No adnexal mass. Normal-appearing ovaries with no sonographic evidence of torsion. Problem List - Problems (1) Abdominal pain, RLQ (right lower quadrant) Assessment/Plan: Plan -no surgical pathology is evident at this point, so no need for acute surgical intervention -unsure of origins of abd pain as all studies have been negative so far -please contact surgical team if any changes in condition Pt discussed with Dr. Ramirez who agrees with plan Code(s): R10.31 - RIGHT LOWER QUADRANT PAIN
[2019-04-22] MEDS: LACTATED RINGERS SOLUTION 1,000 ML IV SCH ×3 (11:36→22:30)
[2019-04-22] MEDS: metroNIDAZOLE 250 MG TABLET PO SCH ×2 (13:40→22:30)
[2019-04-22] MEDS ORDERED: SODIUM PHOSPHATE/NA BIPHOS 133 ML ENEMA PR ONE (14:36)
[2019-04-22] MEDS ORDERED: ONDANSETRON 4 MG/2 ML VIAL IVPUSH ONE (15:52)
--- NOTE | 2019-04-22 18:18 | PN ---
Physical Exam: SUBJECTIVE: Patient seen and examined at bedside. pt states that she had an episode of abdominal pain around midnight which resolved until another episode after she ate and had a BM after lunch. OBJECTIVE: Vital Signs Period Temp Pulse Resp BP Sys/Fay Pulse Ox Last 24 Hr 98.3 F-99 F 53-68 18-20 96-109/60-76 99-99 GENERAL: The patient is awake, alert, and fully oriented, in no acute distress. HEAD: Normal with no signs of trauma. LUNGS: Breath sounds equal, clear to auscultation bilaterally, no wheezes, no crackles, no accessory muscle use. HEART: Regular rate and rhythm, S1, S2 without murmur, rub or gallop. ABDOMEN: Soft, suprapubic tenderness, nondistended, normoactive bowel sounds, SKIN: Warm, dry, normal turgor, no rashes or lesions noted Laboratory Results - last 24 hr 04/22/19 04/22/19 07:20 07:20 WBC 4.4 RBC 3.75 Hgb 11.6 Hct 33.6 MCV 89.7 MCH 30.9 MCHC 34.5 RDW 13.6 Plt Count 165 MPV 8.8 Absolute Neuts (auto) 1.9 Neutrophils % 42.1 L Lymphocytes % 46.2 H D Monocytes % 9.7 Eosinophils % 1.2 Basophils % 0.8 Nucleated RBC % 0 Sodium 138 Potassium 3.9 Chloride 106 Carbon Dioxide 28 Anion Gap 5 L BUN 6.1 L Creatinine 0.7 Est GFR (CKD-EPI)AfAm 123.86 Est GFR (CKD-EPI)NonAf 106.87 Random Glucose 92 Calcium 8.7 Phosphorus 3.8 Magnesium 2.2 Total Bilirubin 1.2 H AST 13 L ALT 15 Alkaline Phosphatase 54 Total Protein 6.3 L Albumin 3.4 Current Medications Dextrose/Sodium Chloride (D5-Ns -) 1,000 mls @ 100 mls/hr IV ASDIR [facility] Last Admin: 04/21/19 16:20 Dose: Not Given Lactated Ringer's (Lactated Ringers Solution) 1,000 mls @ 125 mls/hr IV ASDIR [facility] Last Admin: 04/22/19 11:36 Dose: 125 mls/hr Metronidazole (Flagyl -) 250 mg PO TID [facility] Last Admin: 04/22/19 13:40 Dose: 250 mg Morphine Sulfate (Morphine Sulfate) 2 mg IVPUSH Q6H PRN PRN Reason: PAIN LEVEL 7 - 10 Last Admin: 04/22/19 16:05 Dose: 2 mg ASSESSMENT/PLAN: 43 yo F w/ PMH of multiple abdominal surgeries, GERD, migraines, anemia presents to the ED for RLQ abdominal pain that began last night. Pt is admitted for intractable abdominal pain. today , pt diet was advanced , and pt had BM. but shortly after she became nauseas and the pt stated the pain returned . Abdominal pain r/o adhesions - no leukocytosis, afebrile - UA neg - CT Abdomen / pelvis : IMPRESSION: 1. S/P sleeve gastrectomy, mass hernia repair and hysterectomy. 2. Multiple hepatic cysts. 3. No evidence of appendicitis, small bowel obstruction or acute pathology within the abdomen or pelvis. 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 Bashir . pain is unlikely of surgical pathology - LR @ 125 mls/hr - morpine 2 mg q6h for pain - Flagyl 250 TID , pt should continue x 14 days - pt has colonoscopy planned for saturday with Dr. Estrada -pending U/S bladder - Transvainal u/s : IMPRESSION: Status post hysterectomy. No adnexal mass. Normal-appearing ovaries with no sonographic evidence of torsion. F/E/N - clear liquid diet -monitor lytes -IV LR @ 125 mls/hr DVT ppx: SCDs Dispo: admit to medicine Visit type - Emergency Visit Emergency Visit: No - New Patient This patient is new to me today: No - Critical Care Critical Care patient: No - Discharge Referral Referred to [facility] Yes Physician Referral: Cuong Rogers MD ([facility]) ATTENDING PHYSICIAN STATEMENT I saw and evaluated the patient. I reviewed the resident's note and discussed the case with the resident. I agree with the resident's findings and plan as documented. SUBJECTIVE: OBJECTIVE: ASSESSMENT AND PLAN:
[2019-04-22] MEDS: DEXTROSE 5%-NORMAL SALINE 1,000 ML IV SCH (19:30)
--- NOTE | 2019-04-22 20:07 | PN ---
Teaching Attending Note Name of Resident: Erica Tripathi ATTENDING PHYSICIAN STATEMENT I saw and evaluated the patient. I reviewed the resident's note and discussed the case with the resident. I agree with the resident's findings and plan as documented. SUBJECTIVE: seen around noon abd pain improved . no nausea. wanted to try solid food No BM in 1 week OBJECTIVE: NAD Cv : RRR, no MRG Lungs: CTAb Ext : No edema or ertyehma Abd: soft, ND, TTP in RLQ, and supapubic area. no rebound tenderness or guarding. ASSESSMENT AND PLAN: 43 y/o lady with h/o Hysterectomy, tummy tuck, gastric sleeve, hernia repair, GERD and migraines, who presented with RLQ abd pain . 1- R LQ abd pain , unclear etiology. CT, TVUS, bladder US reviewed. could be due to constipation ( No BM in 1 week ) , or IBS - give enema , and miralax - solid food tried , pain worsened , give ful liquids - colo onMOnday as out p t - started on flagyl by GI - cont IVF 2- hepatic cysts : f/u as out pt 3- DVT PX : start heparin sq will monitor till am since her pain worsened with food
--- NOTE | 2019-04-22 21:02 | PN ---
Progress Note (short form) - Note Progress Note: chart reviewed patient examined, No acute surgical pathology. Pain is most likely secondary to adhesions Recommend treat constipation and observation
[2019-04-22] MEDS ORDERED: POLYETHYLENE GLYCOL 3350 119 GM BTL PO SCH (22:00)
[2019-04-22] MEDS: HEPARIN NA (PORCINE) 5,000 UNITS/ML 1ML VIAL SQ SCH (22:30)
--- NOTE | 2019-04-23 07:41 | PN ---
Progress Note, Physician History of Present Illness: GI FOLLOW UP NOTE Patient examined and case discussed with Dr Estrada Patient states her abdominal pain is better. Denies nausea, vomiting. Received enema yesterday for constipation with good effect. Denies diarrhea, rectal bleeding or melena. - Current Medication List Current Medications: Active Medications Heparin Sodium (Porcine) (Heparin -) 5,000 unit SQ TID [facility] Last Admin: 04/22/19 22:30 Dose: 5,000 unit Documented by: Dextrose/Sodium Chloride (D5-Ns -) 1,000 mls @ 100 mls/hr IV ASDIR [facility] Last Admin: 04/22/19 19:30 Dose: Not Given Documented by: Lactated Ringer's (Lactated Ringers Solution) 1,000 mls @ 125 mls/hr IV ASDIR [facility] Last Admin: 04/22/19 22:30 Dose: 125 mls/hr Documented by: Metronidazole (Flagyl -) 250 mg PO TID [facility] Last Admin: 04/22/19 22:30 Dose: 250 mg Documented by: Morphine Sulfate (Morphine Sulfate) 2 mg IVPUSH Q6H PRN PRN Reason: PAIN LEVEL 7 - 10 Last Admin: 04/22/19 16:05 Dose: 2 mg Documented by: - Objective Vital Signs: Vital Signs Temperature 98.4 F 04/23/19 06:00 Pulse Rate 53 L 04/23/19 06:00 Respiratory Rate 18 04/23/19 06:00 Blood Pressure 96/60 04/23/19 06:00 O2 Sat by Pulse Oximetry (%) 98 04/22/19 21:00 Constitutional: Yes: No Distress, Calm Eyes: Yes: Conjunctiva Clear HENT: Yes: Atraumatic Cardiovascular: Yes: Regular Rate and Rhythm Respiratory: Yes: Regular, CTA Bilaterally Gastrointestinal: Yes: Normal Bowel Sounds, Soft, Tenderness (rlq) Neurological: Yes: Alert, Oriented Psychiatric: Yes: Alert, Oriented Labs: CBC, BMP 04/22/19 07:20 04/22/19 07:20 INR, PTT INR 1.00 (0.83-1.09) 04/21/19 10:55 Problem List - Problems (1) Abdominal pain, RLQ (right lower quadrant) Assessment/Plan: RLQ pain, R/O IBS vs cecal pathology neoplasm R>outpatient colonoscopy when condition improves 1 week outpatient follow up advance diet as tolerated Flagyl 250mg TID x 14d Code(s): R10.31 - RIGHT LOWER QUADRANT PAIN
[2019-04-23 08:34] LABS: ALBUMIN 3.4 g/dl (3.4-5.0); BILIRUBIN,TOTAL 1.6 mg/dL (0.2-1); BLOOD UREA NITROGEN 6.9 mg/dL (7-18); CALCIUM 8.7 mg/dL (8.5-10.1); CREATININE 0.7 mg/dL (0.55-1.3); MAGNESIUM 1.9 mg/dL (1.8-2.4); PHOSPHOROUS 3.9 mg/dL (2.5-4.9); TOT PROT 5.9 g/dl (6.4-8.2)
[2019-04-23] MEDS: HEPARIN NA (PORCINE) 5,000 UNITS/ML 1ML VIAL SQ SCH (09:10)
[2019-04-23] MEDS: metroNIDAZOLE 250 MG TABLET PO SCH (09:10)
[2019-04-23 09:12] LABS: BILIRUBIN,DIRECT 0.3 mg/dL (0.0-0.2)
[2019-04-23] MEDS ORDERED: POLYETHYLENE GLYCOL 3350 119 GM BTL PO SCH (10:00)
--- NOTE | 2019-04-23 11:34 | PN ---
Progress Note (short form) - Note Progress Note: Surgery: Patient seen and examined at bedside with no new complaints. She is tolerating her diet and had a large BM yesterday after an enema. She states her abdominal pain continues to improve. She denies any CP, SOB, N/V, fever or chills. Vital Signs Temp 98.4 F 04/23/19 06:00 Pulse 53 L 04/23/19 06:00 Resp 18 04/23/19 06:00 BP 96/60 04/23/19 06:00 Pulse Ox 98 04/22/19 21:00 Intake & Output 04/22/19 04/22/19 04/23/19 11:59 23:59 11:59 Intake Total 850 500 120 Balance 850 500 120 Intake: IV 750 500 Lactated Ringers Solution 750 500 1,000 ml @ 125 mls/hr IV ASDIR CORINE Rx#: [id number] IVPB 100 Oral 120 Other: Voiding Method Toilet Toilet # Unmeasured Voids Void 1 2 3 Bowel Movement No No No Weight Measurement Method Standing Scale CBC, BMP 04/22/19 07:20 04/23/19 06:15 PE: A&Ox3, NAD Unlabored resp on RA ABD: soft, ND with focal RLQ tenderness to palpation, no masses, lesions or guarding. B/L LE compartments soft, supple and non-tender with +2 DP pulses. Problem List - Problems (1) Abdominal pain Assessment/Plan: Patient tolerating diet with improved pain and moved bowels also passing flatus. - Continue diet as per GI - encourage IS -OOB as tolerated - f/u with GI as outpatient - reconsult surgery PRN Evaluation and plan discussed with Dr Stewart. Code(s): R10.9 - UNSPECIFIED ABDOMINAL PAIN Qualifiers: Abdominal location: right lower quadrant Qualified Code(s): R10.31 - Right lower quadrant pain (2) Abdominal pain, RLQ (right lower quadrant) Code(s): R10.31 - RIGHT LOWER QUADRANT PAIN
--- NOTE | 2019-04-23 11:46 | DS ---
Physical Exam: SUBJECTIVE: Patient seen and examined at bedside. pt has no acute complaints and states the pain improved after she got pain med yesterday OBJECTIVE: Vital Signs Period Temp Pulse Resp BP Sys/Fay Pulse Ox Last 24 Hr 98.1 F-99 F 53-68 18-20 96-99/51-68 98 PHYSICAL EXAM GENERAL: The patient is awake, alert, and fully oriented, in no acute distress. HEAD: Normal with no signs of trauma. LUNGS: Breath sounds equal, clear to auscultation bilaterally, no wheezes, no crackles, no accessory muscle use. HEART: Regular rate and rhythm, S1, S2 without murmur, rub or gallop. ABDOMEN: Soft, nontender, nondistended, normoactive bowel sounds, no guarding EXTREMITIES: 2+ pulses, warm, well-perfused, no edema. NEUROLOGICAL: Cranial nerves II through XII grossly intact. Normal speech SKIN: Warm, dry, normal turgor, no rashes or lesions noted. LABS Laboratory Results - last 24 hr 04/23/19 06:15 Sodium 141 Potassium 4.0 Chloride 108 H Carbon Dioxide 27 Anion Gap 6 L BUN 6.9 L Creatinine 0.7 Est GFR (CKD-EPI)AfAm 123.86 Est GFR (CKD-EPI)NonAf 106.87 Random Glucose 75 Calcium 8.7 Phosphorus 3.9 Magnesium 1.9 Total Bilirubin 1.6 H Direct Bilirubin 0.3 H AST 13 L ALT 15 Alkaline Phosphatase 51 Total Protein 5.9 L Albumin 3.4 HOSPITAL COURSE: Date of Admission:04/21/19 43 yo F w/ PMH of multiple abdominal surgeries, GERD, migraines, anemia presents to the ED for RLQ abdominal pain that began last night. Pt is admitted for intractable abdominal pain. pt diet was advanced , and pt had BM. throughout the admission pt had no leukocytosis and was afebrile, UA was negative CT abdomen/ pelvis showed IMPRESSION: 1. S/P sleeve gastrectomy, mass hernia repair and hysterectomy. 2. Multiple hepatic cysts. 3. No evidence of appendicitis, small bowel obstruction or acute pathology within the abdomen or pelvis. pt had Transvainal u/s : IMPRESSION: Status post hysterectomy. No adnexal mass. Normal- appearing ovaries with no sonographic evidence of torsion. pt was seen by TOOL AND DIE ENGINEER , Dr. Guerrero evaluated pt and thinks its unlikely rn gyn cause of pain, unlike ovarian torsion. pt was also evaluated by surgery, Dr. Bashir and pain is unlikely of surgical pathology. pt also had a negative bladder u/s . pt was seen by GI, Dr. Estrada who encouraged IV hydration, and flagyl 250 TID for 14 days. pt will f/u with Dr. Estrada on next week . pt should also f/u with PMD in 1 week to monitor improvement. Date of Discharge: 04/23/19 Minutes to complete discharge: 36 Discharge Summary Problems reviewed: Yes Reason For Visit: ABDOMINAL PAIN Current Active Problems Hepatic cyst (Chronic) Condition: Improved - Instructions Diet, Activity, Other Instructions: You came into the hospital for abdominal pain. You had a Catscan showing that you have cysts on your liver, but overall the test was negative for a cause of your pain. You should have a repeat liver ultrasound in 1 year to reevaluate these cysts. You also had ultrasounds to evaluate your ovaries and bladder which was negative. Your blood tests are negative for a cause of your pain. You were evaluated by the Surgery department, Fire Ranger, Deputy Chief Magistrate, and our medicine team. Please take Flagyl 250mg every 8 hours for 13 days. Please continue your home medications as prescribed. Please follow up with your primary care physician, Dr. Canela regarding your chronic medical conditions Please follow up with your electronic service technician, Dr. Estrada to schedule a colonoscopy and for a hepatic workup. Please schedule a follow up appointment in 1 week. Please continue a low fiber, and lactose free diet. Please take an over the counter medication called Colace and Senna every day to make passing stool easier. You may double the amount if you have not had a bowel movement in 2 days. If you have any abdominal pain,, fever, chills, new, worsening, or concerning symptoms please return to the ED or call 911 You need liver enzymes checked in 1 week . Bilirubin level was slightly elevated Referrals: Cuong Canela MD [Primary Care Provider] - 1 Week Alisia Guerrero MD [Staff Physician] - 1 Week Doyle Esrtada MD [Staff Physician] - 1 Week Disposition: HOME - Home Medications Comprehensive Discharge Medication List: Ambulatory Orders Multivitamin [Multiple Vitamins] 1 each PO DAILY 04/21/19 Plecanatide [Trulance] 3 mg PO DAILY 04/22/19 Docusate Sodium [Colace -] 100 mg PO DAILY #60 capsule 04/23/19 Sennosides [Senna] 8.6 mg PO DAILY #30 tablet 04/23/19 metroNIDAZOLE [Flagyl -] 250 mg PO Q8H #39 tablet 04/23/19 This patient is new to me today: No Emergency Visit: No Critical Care patient: No - Discharge Referral Referred to [facility] Yes Physician Referral: Cuong Rogers MD ([facility]) ATTENDING PHYSICIAN STATEMENT I saw and evaluated the patient. I reviewed the resident's note and discussed the case with the resident. I agree with the resident's findings and plan as documented. SUBJECTIVE: OBJECTIVE: ASSESSMENT AND PLAN:
[2019-04-23 12:08] VITALS: BP 100/70; PULSE 50; TEMP 98.3
--- NOTE | 2019-04-23 13:42 | PN ---
Teaching Attending Note Name of Resident: Erica Tripathi ATTENDING PHYSICIAN STATEMENT I saw and evaluated the patient. I reviewed the resident's note and discussed the case with the resident. I agree with the resident's findings and plan as documented. SUBJECTIVE: Pain improved, but came back as a sharp feeling in RLQ after breakfast, lasted for few seconds then resolved. No N/V . no fever Had a BM after enema OBJECTIVE: NAD Cv : RRR, no MRG Lungs: CTAb Ext : No edema or ertyehma Abd: soft, ND,minimal TTP in RLQ, and supapubic area. no rebound tenderness or guarding. ASSESSMENT AND PLAN: 43 y/o lady with h/o Hysterectomy, tummy tuck, gastric sleeve, hernia repair, GERD and migraines, who presented with RLQ abd pain . 1- R LQ abd pain , unclear etiology still. constipation might be playing a role. - avoid constipation - lactose free diet for now - cont Abx per GI to complete 14 days - f/u with Dr. nielsen as out pt to reschedule the colonoscopy 2- hepatic cysts : f/u as out pt. US in 1 yr dc home. pt was advised to come back if sx worsen, or if she starts develping fever , abd distension , or no BMs for few days .
== END 2019-04-23 13:35 | disposition home or self-care (01) | DRG 392 ==
LOC: JER 10:02 → JERBED 16:04 → J8W 17:53
PROVIDERS: ADMIT Internal Medicine; ATTEND Internal Medicine
DX: K59.09 Other constipation (principal); K21.9 Gastro-esophageal reflux disease without esophagitis; D64.9 Anemia, unspecified; G43.909 Migraine, unspecified, not intractable, without status migrainosus; K76.89 Other specified diseases of liver; R10.31 Right lower quadrant pain; N83.209 Unspecified ovarian cyst, unspecified side; R00.1 Bradycardia, unspecified; Z98.84 Bariatric surgery status; Z90.710 Acquired absence of both cervix and uterus
CPT/HCPCS: 36415; 74177-TC; 76830-TC; 76856-TC; 80053; 81003; 82248; 83605; 83690; 83735; 84100; 85025; 85610; 85730; 86850; 86900; 86901; 87086; 93005; 93010; 99285-25; J0131; J1644; J7030; Q9967

== ENCOUNTER 2020-06-08 17:48 | Emergency (ER) | payer BC, OTHER ==
[2020-06-08 18:05] VITALS: BP 112/76; PULSE 63; TEMP 97.8; BMI 24.5
[2020-06-08] MEDS ORDERED: ACETAMINOPHEN 1000 MG/100 ML VIAL (NON FORMULARY) IVPB ONE (19:34)
[2020-06-08] MEDS ORDERED: ACETAMINOPHEN INJECTION 100 ML IVPB ONE (20:04)
[2020-06-08] MEDS ORDERED: oxyCODONE HCL 5 MG TABLET PO ONE (21:26)
[2020-06-08] MEDS ORDERED: oxyCODONE HCL 5 MG TABLET ONE (21:41)
== END 2020-06-08 21:48 | disposition home or self-care (01) ==
LOC: JER 17:48
PROC: 3E0333Z Introduction of Anti-inflammatory into Peripheral Vein, Percutaneous Approach (ICD-10-PCS; principal; 2020-06-08)
DX: N83.02 Follicular cyst of left ovary (principal)
CPT/HCPCS: 99285-25; J0131

== ENCOUNTER 2021-08-25 19:55 | Emergency (ER) | payer OTHER, BC ==
[2021-08-25 20:00] VITALS: BP 115/56; PULSE 66; TEMP 98; BMI 24.5
[2021-08-25] MEDS ORDERED: SODIUM CHLORIDE 0.9% 500 ML INFUS.BAG IV ONE (21:08)
[2021-08-25] MEDS ORDERED: morphine CARPU-JECT 4 MG/1 ML DISP.SYRIN IVPUSH ONE (21:09)
[2021-08-25] MEDS ORDERED: morphine SULFATE 4 MG/ML VIAL ONE (21:16)
[2021-08-25] MEDS ORDERED: ONDANSETRON 4 MG/2 ML VIAL IVPUSH ONE (21:19)
[2021-08-25] MEDS ORDERED: ONDANSETRON 4 MG/2 ML VIAL ONE (21:21)
[2021-08-25 22:08] LABS: BASO % 0.5 % (0-2.0); EOS % 0.2 % (0-4.5); HEMOGLOBIN 13.3 GM/dL (10.7-15.3); LYMPH % 16.4 % (8-40); MCH 30.1 pg (25.7-33.7); MCHC 34.1 g/dl (32.0-36.0); MEAN CELL VOLUME 88.1 fl (80-96); MEAN PLT VOLUME 9.1 fl (7.5-11.1); MONO % 4.4 % (3.8-10.2); NEUT % 78.5 % (42.8-82.8); PLATELET COUNT 227 10^3/uL (134-434); RBC 4.43 M/mm3 (3.60-5.2); RDW 13.1 % (11.6-15.6); WHITE BLOOD COUNT 8.8 K/mm3 (4.0-10.0)
[2021-08-25 22:28] LABS: CALCIUM 9.7 mg/dL (8.5-10.1)
[2021-08-25 22:29] LABS: ALBUMIN 4.4 g/dl (3.4-5.0)
[2021-08-25 22:31] LABS: CREATININE 0.8 mg/dL (0.55-1.3)
[2021-08-25 22:33] LABS: BILIRUBIN,TOTAL 0.7 mg/dL (0.2-1); TOT PROT 7.8 g/dl (6.4-8.2)
== END 2021-08-26 00:21 | disposition home or self-care (01) ==
LOC: JER 19:55
PROC: 3E033GC Introduction of Other Therapeutic Substance into Peripheral Vein, Percutaneous Approach (ICD-10-PCS; principal; 2021-08-25)
DX: R10.11 Right upper quadrant pain (principal)
CPT/HCPCS: 36415; 76705-TC; 80053; 83690; 85025; 99284-25

== ENCOUNTER 2024-10-20 21:46 | Inpatient (IN) | payer BC, OTHER ==
[2024-10-20] MEDS ORDERED: ACETAMINOPHEN INJECTION 100 ML ONE (22:37)
[2024-10-20] MEDS: ACETAMINOPHEN 1000 MG/100 ML BAG IVPB ONE (23:20)
[2024-10-20] MEDS: SODIUM CHLORIDE 1,000 ML IV STA (23:20)
[2024-10-20] MEDS ORDERED: MORPHINE SULFATE 2 MG/ML SYRINGE ONE (23:52)
[2024-10-21] MEDS: morphine CARPU-JECT 2 MG/1 ML DISP.SYRIN IVPUSH ONE ×2 (00:01→12:06)
[2024-10-21 00:30] LABS: URINE APPEARANCE CLEAR; URINE BILIRUBIN NEGATIVE (NEGATIVE); URINE COLOR YELLOW; URINE GLUCOSE (UA) NEGATIVE (NEGATIVE); URINE KETONE 1+ (NEGATIVE); URINE LEUK ESTERASE NEGATIVE (NEGATIVE); URINE NITRITE NEGATIVE (NEGATIVE); URINE PROTEIN NEGATIVE (NEGATIVE); URINE UROBILINOGEN 0.2 mg/dL (0.2-1.0)
[2024-10-21 00:49] LABS: GLUCOSE,RANDOM 108.0 mg/dL (74-106); TOT PROT 8.2 g/dl (6.4-8.2)
[2024-10-21 00:50] LABS: ABSOLUTE IMMATURE GRANULOCYTES 0.03 x10^3/uL (0.0-0.031); BASOPHILS # 0.02 x10^3/uL (0.01-0.08); CO2 14.0 mmol/L (21-32); EOSINOPHIL % 0.1 % (0.7-5.8); EOSINOPHILS # 0.01 x10^3/uL (0.04-0.36); MCHC 31.8 g/dl (32.2-35.5); MEAN CELL VOLUME 93.8 fl (79.4-94.8); MEAN PLT VOLUME 11.5 fl (9.4-12.3); MONOCYTE # 0.42 x10^3/uL (0.24-0.86); MONOCYTE % 4.5 % (4.7-12.5); RDW 12.9 % (12.2-17.1)
[2024-10-21 00:51] LABS: ALK PHOS 56.0 U/L (40-150)
[2024-10-21 00:54] LABS: CREATININE 1.0 mg/dL (0.55-1.3); SGOT/AST 50.0 U/L (5-34); SGPT/ALT 13.0 U/L (0-55)
[2024-10-21 01:16] LABS: HCV DIAGNOSTIC IN-HOUSE W/RFLX NON-REACTIVE (NONREACTIVE)
[2024-10-21 01:17] LABS: HIV INTERPRETATION NEGATIVE (NEGATIVE)
[2024-10-21 03:14] LABS: GLUCOSE,RANDOM 97.0 mg/dL (74-106)
[2024-10-21 03:15] LABS: CO2 16.0 mmol/L (21-32)
[2024-10-21] MEDS ORDERED: LACTATED RINGERS SOLUTION 1,000 ML/1,000 ML INFUS.BAG IV SCH (03:15)
[2024-10-21 03:19] LABS: CREATININE 0.91 mg/dL (0.55-1.3)
[2024-10-21] MEDS: LACTATED RINGERS SOLUTION 1,000 ML/1,000 ML INFUS.BAG IV SCH (03:30)
[2024-10-21] MEDS: ONDANSETRON 4 MG/2 ML VIAL IVPUSH SCH (03:30)
[2024-10-21] MEDS ORDERED: PATIENT'S OWN MEDICATION (NON-FORMULARY) (Ubrogepant [Ubrelvy] 100 MG Tablet) PO PRN (05:47)
[2024-10-21 06:43] LABS: MCHC 33.3 g/dl (32.2-35.5); MEAN CELL VOLUME 91.2 fl (79.4-94.8); MEAN PLT VOLUME 10.8 fl (9.4-12.3); RDW 12.7 % (12.2-17.1)
[2024-10-21 06:59] LABS: GLUCOSE,RANDOM 93.0 mg/dL (74-106)
[2024-10-21] MEDS ORDERED: ACETAMINOPHEN INJECTION 100 ML ONE (06:59)
[2024-10-21 07:00] LABS: TOT PROT 6.1 g/dl (6.4-8.2)
[2024-10-21 07:01] LABS: CO2 19.0 mmol/L (21-32)
[2024-10-21 07:02] LABS: ALK PHOS 55.0 U/L (40-150)
[2024-10-21 07:05] LABS: CREATININE 0.88 mg/dL (0.55-1.3); SGOT/AST 17.0 U/L (5-34); SGPT/ALT 9.0 U/L (0-55)
[2024-10-21] MEDS ORDERED: ONDANSETRON 4 MG/2 ML VIAL ONE (08:20)
[2024-10-21] MEDS ORDERED: PANTOPRAZOLE 40 MG TABLET PO SCH (10:00)
[2024-10-21] MEDS: PANTOPRAZOLE SODIUM 40 MG VIAL IVPUSH SCH (10:18)
[2024-10-21] MEDS: MULTIVITAMINS (DAILY MVI) TABLET (FP) PO SCH (10:18)
[2024-10-21 13:51] VITALS: BMI 25.0
[2024-10-21] MEDS: ACETAMINOPHEN 1000 MG/100 ML BAG IVPB PRN (19:37)
[2024-10-21] MEDS: TOPIRAMATE PO SCH (21:43)
[2024-10-21] MEDS ORDERED: TOPIRAMATE 25 MG TABLET PO SCH (22:00)
[2024-10-22 07:52] LABS: ABSOLUTE IMMATURE GRANULOCYTES 0.01 x10^3/uL (0.0-0.031); BASOPHILS # 0.03 x10^3/uL (0.01-0.08); EOSINOPHIL % 0.5 % (0.7-5.8); EOSINOPHILS # 0.02 x10^3/uL (0.04-0.36); MCHC 32.6 g/dl (32.2-35.5); MEAN CELL VOLUME 92.5 fl (79.4-94.8); MEAN PLT VOLUME 10.2 fl (9.4-12.3); MONOCYTE # 0.41 x10^3/uL (0.24-0.86); MONOCYTE % 9.3 % (4.7-12.5); RDW 12.7 % (12.2-17.1)
[2024-10-22 08:33] LABS: LACTIC ACID 3.4 mmol/L (0.4-2.0)
[2024-10-22 08:39] LABS: GLUCOSE,RANDOM 74.0 mg/dL (74-106); TOT PROT 6.2 g/dl (6.4-8.2)
[2024-10-22 08:40] LABS: CO2 21.0 mmol/L (21-32)
[2024-10-22 08:42] LABS: ALK PHOS 54.0 U/L (40-150)
[2024-10-22 08:44] LABS: SGOT/AST 20.0 U/L (5-34); SGPT/ALT 8.0 U/L (0-55)
[2024-10-22 08:46] LABS: CREATININE 1.09 mg/dL (0.55-1.3)
[2024-10-22] MEDS: LACTATED RINGERS SOLUTION 1000 ML INFUS.BAG IV ONE (10:57)
[2024-10-22 12:26] LABS: MCHC 31.8 g/dl (32.2-35.5); MEAN CELL VOLUME 94.1 fl (79.4-94.8); MEAN PLT VOLUME 10.4 fl (9.4-12.3); RDW 12.6 % (12.2-17.1)
[2024-10-22 13:04] LABS: LACTIC ACID 2.2 mmol/L (0.4-2.0)
[2024-10-23 21:13] VITALS: RESP 18
[2024-10-23] MEDS: SIMETHICONE 80 MG TAB.CHEW (FP) PO PRN (21:15)
[2024-10-24 13:47] VITALS: BP 91/70; PULSE 60; TEMP 99
== END 2024-10-24 14:42 | disposition home or self-care (01) | DRG 392 ==
LOC: JER 21:46 → JERBED 10-21 02:21 → J5S 10-21 08:52
PROVIDERS: ADMIT Internal Medicine; ATTEND Student in an Organized Health Care Education/Training Program
DX: K52.9 Noninfective gastroenteritis and colitis, unspecified (principal); K21.9 Gastro-esophageal reflux disease without esophagitis; G43.909 Migraine, unspecified, not intractable, without status migrainosus
CPT/HCPCS: 36415; 74019-TC-FY; 74177-TC; 80048; 80053; 81003; 83605; 83690; 83735; 84100; 85025; 85027; 86803; 87086; 87389; 87637-QW; 93005; 93010; 99285-25; Q9967